=== PATIENT | female | born 1990 | race Caucasian/White ===

== ENCOUNTER 2016-12-10 00:56 | Emergency (ER) | payer MEDICAID, OTHER ==
[2016-12-10] MEDS ORDERED: NORMAL SALINE 1000 ML 1,000 ML IV ONE (01:20)
[2016-12-10 02:02] LABS: ABSOLUTE BASOPHILS # (AUTO) 0.1 10^3/uL (0.0-0.2); ABSOLUTE LYMPHOCYTES (AUTO) 1.4 10^3/uL (0.5-4.7); ABSOLUTE MONOCYTES (AUTO) 0.5 10^3/uL (0.1-1.4); BASOPHILS % (AUTO) 0.4 % (0-2); EOSINOPHILS % (AUTO) 0.2 % (0-6); HEMATOCRIT 39.2 % (36.0-47.0); HEMOGLOBIN 12.9 g/dL (12.0-15.5); HGB HCT DIFFERENCE -0.5; MEAN CORPUSCULAR HEMOGLOBIN 30.8 pg (27.0-33.4); MEAN CORPUSCULAR HGB CONC 32.9 g/dL (32.0-36.0); MEAN CORPUSCULAR VOLUME 94 fl (80-97); MONOCYTES % (AUTO) 3.3 % (3-13); RED BLOOD COUNT 4.18 10^6/uL (3.72-5.28); RED CELL DISTRIBUTION WIDTH 11.5 % (11.5-14.0); SEGMENTED NEUTROPHILS % (AUTO) 86.1 % (42-78); WHITE BLOOD COUNT 13.9 10^3/uL (4.0-10.5)
[2016-12-10 02:19] LABS: ALANINE AMINOTRANSFERASE 35 U/L (9-52); ALKALINE PHOSPHATASE 65 U/L (38-126); ANION GAP 13 (5-19); ASPARTATE AMINO TRANSFERASE 27 U/L (14-36); BILIRUBIN,TOTAL 0.7 mg/dL (0.2-1.3); BLOOD UREA NITROGEN 10 mg/dL (7-20); CALCIUM 9.6 mg/dL (8.4-10.2); CARBON DIOXIDE 23 mmol/L (22-30); CHLORIDE 102 mmol/L (98-107); CREATININE RESULT 0.58 mg/dL (0.52-1.25); GLUCOSE 102 mg/dL (75-110); LIPASE 30.5 U/L (23-300); POTASSIUM 3.9 mmol/L (3.6-5.0); SODIUM 137.6 mmol/L (137-145); TOTAL PROTEIN 6.9 g/dL (6.3-8.2)
[2016-12-10 03:59] LABS: APPEARANCE,URINE CLOUDY; BILIRUBIN,URINE NEGATIVE (NEGATIVE); GLUCOSE, URINE NEGATIVE (NEGATIVE); KETONES,URINE 80 mg/dL (NEGATIVE); LEUKOCYTE ESTERASE,URINE LARGE (NEGATIVE); NITRITE,URINE NEGATIVE (NEGATIVE); PROTEIN,URINE 30 mg/dL (NEGATIVE); URINE SPECIFIC GRAVITY 1.014; UROBILINOGEN,URINE NEGATIVE mg/dL (<2.0)
--- NOTE | 2016-12-10 04:32 | ER Document Report ---
ED General - General Chief Complaint: Nausea Stated Complaint: RIGHT SIDE RIB PAIN,VOMITING Notes: Patient is a 26-year-old female who presents with complaint of some nausea and vomiting, pain of her right upper ribs, and some abnormal vaginal discharge. She says she is proximal make 2 months . Her first visit is tomorrow at health Department. This is her fifth . She still sexually active and does not wear protection. She denies any complications with her other 4 pregnancies. No vaginal bleeding. No pain over the anterior abdomen. No other complaints at this time. No fevers. Patient says movement makes the pain in her ribs much worse. TRAVEL OUTSIDE OF THE [place] IN LAST 30 DAYS: No - Related Data Allergies/Adverse Reactions: No Known Allergies Allergy (Verified 04/18/16 05:04) Past Medical History - Social History Smoking Status: Current Every Day Smoker Frequency of alcohol use: None Drug Abuse: Marijuana Family History: None Patient has suicidal ideation: No Patient has homicidal ideation: No - Past Medical History Cardiac Medical History: Denies: Hx Hypertension Renal/ Medical History: Denies: Hx Peritoneal Dialysis Psychiatric Medical History: Reports: Hx Anxiety, Hx Bipolar Disorder, Hx Depression - Immunizations Hx Diphtheria, Pertussis, Tetanus Vaccination: Yes Review of Systems - Review of Systems Notes: My Normal Review Basic REVIEW OF SYSTEMS: CONSTITUTIONAL : Denies fever, chills, or sweats. Denies recent illness. EENT: Denies eye, ear, throat, or mouth pain or symptoms. Denies nasal or sinus congestion. CARDIOVASCULAR: Pain over right upper lateral ribs. RESPIRATORY: Denies cough, cold, or chest congestion. Denies shortness of breath, difficulty breathing, or wheezing. GASTROINTESTINAL: Denies abdominal pain. Some nausea and vomiting.. Denies constipation. Last BM: GENITOURINARY: Denies difficulty urinating, painful urination, burning, frequency, or blood in urine. FEMALE GENITOURINARY: Denies vaginal bleeding, abnormal or irregular periods. Some abnormal vaginal discharge LMP: Currently MUSCULOSKELETAL: Denies neck or back pain or joint pain or swelling. SKIN: Denies rash or skin lesions. NEUROLOGICAL: Denies altered mental status or loss of consciousness. Denies headache. Denies weakness or paralysis or loss of use of either side. Denies problems with gait or speech. Denies sensory or motor loss. ALL OTHER SYSTEMS REVIEWED AND NEGATIVE. Physical Exam - Vital signs Vitals: Temp Pulse BP Pulse Ox 97.5 F 76 140/100 H 98 12/10/16 01:18 12/10/16 01:18 12/10/16 01:18 12/10/16 01:18 - Notes Notes: General Appearance: Well nourished, alert, cooperative, no acute distress, mild obvious discomfort. Vitals: reviewed, See vital signs table. Head: no swelling or tenderness to the head Eyes: PERRL, EOMI, Conjuctiva clear Mouth: No decreasd moisture Neck: Supple, no neck tenderness, No thyromegaly Lungs: No wheezing, No rales, No rhonci, No accessory muscle use, good air exchange bilaterally. Heart: Normal rate, Regular rythm, No murmur, no rub Chest wall: Pinpoint pain palpation over the right upper ribs on the mid axillary line. No swelling. No deformity. Pain also worse with movement on exam. Abdomen: Normal BS, soft, No rigidity, No abdominal tenderness, No guarding, no rebound, no abdominal masses, no organomegaly Extremities: strength 5/5 in all extremities, good pulses in all extremities, no swelling or tenderness in the extremities, no edema. Skin: warm, dry, appropriate color, no rash Neuro: speech clear, oriented x 3, normal affect, responds appropriately to questions. Course - Vital Signs Vital signs: Temp Pulse Resp BP Pulse Ox 97.5 F 76 140/100 H 98 12/10/16 01:18 12/10/16 01:18 12/10/16 01:18 12/10/16 01:18 - Laboratory Result Diagrams: 12/10/16 01:49 12/10/16 01:49 Laboratory results interpreted by me: 12/10/16 12/10/16 12/10/16 01:49 01:49 03:32 WBC 13.9 H Seg Neutrophils % 86.1 H Lymphocytes % 10.0 L Absolute Neutrophils 12.0 H Beta HCG, Quant 106317.00 H Urine Protein 30 H Urine Ketones 80 H Urine Blood SMALL H Ur Leukocyte Esterase LARGE H - Transfer of Care Notes: 12/10/16 07:56 Patient was initially treated for possible guttering immediately because her pelvic exam had a large amount of yellowish discharge concerning for possible gonorrhea. Her gonorrhea and chlamydia testing was negative however she is positive for trichomonas. I did inform her she must have her sexual partner tested and treated as well. I did inform her of the subchronic hemorrhage. I encourage her to follow closely with her OB doctor and to bring her discharge paperwork with her to her upcoming appointment so that they can read about her results. I did type her results into the discharge paperwork. Informed her no sexual activity no heavy lifting until cleared by her OB doctor. I encourage her to return to ER medially if she has fevers, pain, or bleeding. Patient agrees with plan and will be discharged home. Dictation of this chart was performed using voice recognition software; therefore, there may be some unintended grammatical errors. Discharge - Discharge Clinical Impression: Bacterial vaginosis, Trichomonal cervicitis Twin Qualifiers: Multiple gestation type: unspecified Trimester: first trimester Qualified Code( s): O30.001 - Twin , unspecified number of placenta and unspecified number of amniotic sacs, first trimester UTI (urinary tract infection) Qualifiers: Urinary tract infection type: acute cystitis Hematuria presence: without hematuria Qualified Code(s): N30.00 - Acute cystitis without hematuria Subchorionic bleed Qualifiers: Trimester: first trimester Condition: Good Disposition: HOME, SELF-CARE Instructions: Cephalexin ([facility]) Additional Instructions: Your urinalysis should evidence of infection. Your vaginal swabs suggest bacterial vaginosis. Gonorrhea and chlamydia testing were negative. Your ultrasound does show a subchorionic hemorrhage. This is bleeding at sometimes occurs within the uterus during . This is a risk factor for miscarriage. It does not no ceiling mean that you will have a miscarriage. 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 Please take vitamins. Please follow up closely with her maintenance of way supervisor. Please take the antibiotics as prescribed. Please have your sexual partner follow-up with the health department or the ER for treatment and testing for sexually transmitted diseases being that your trichomonas test was positive. Prescriptions: Cephalexin Monohydrate [Keflex 500 mg Capsule] 500 mg PO BID #6 capsule Metronidazole [Flagyl 500 mg Tablet] 500 mg PO BID #14 tablet Pnv95/Ferrous Fumarate/FA [ Caplet] 1 each PO DAILY #60 tablet
[2016-12-10] MEDS ORDERED: LIDOCAINE 1% INJ-PF (10 MG/ML) 30 ML SDV INFIL ONE (05:38)
[2016-12-10] MEDS ORDERED: AZITHROMYCIN 250 MG TABLET PO ONE (05:38)
[2016-12-10] MEDS ORDERED: CEFTRIAXONE INJ 250 MG VIAL IM ONE (05:38)
[2016-12-10] MEDS ORDERED: ONDANSETRON 4 MG TAB.RAPDIS PO ONE (05:38)
[2016-12-10 06:52] LABS: CHLAM PCR NOT DETECTED (NOT DETECT)
[2016-12-10 08:51] VITALS: BP 123/65
== END 2016-12-10 08:56 | disposition home or self-care (01) ==
LOC: ER 00:56
DX: O20.8 Other hemorrhage in early pregnancy (principal); O98.311 Other infections with a predominantly sexual mode of transmission complicating pregnancy, first trimester; A59.09 Other urogenital trichomoniasis; O23.591 Infection of other part of genital tract in pregnancy, first trimester; N76.0 Acute vaginitis; B96.89 Other specified bacterial agents as the cause of diseases classified elsewhere; O23.11 Infections of bladder in pregnancy, first trimester; O30.001 Twin pregnancy, unspecified number of placenta and unspecified number of amniotic sacs, first trimester; O21.9 Vomiting of pregnancy, unspecified; O99.331 Smoking (tobacco) complicating pregnancy, first trimester; F17.200 Nicotine dependence, unspecified, uncomplicated; O26.891 Other specified pregnancy related conditions, first trimester; R07.81 Pleurodynia; Z3A.00 Weeks of gestation of pregnancy not specified
CPT/HCPCS: 99284; 96372; 96360; 86900; 86901; 36415; 87210; 84702; 83690; 85025; 80053; 81001; 87491; 87591; 71010; 76801; 76802; 93976; S0119; J3490; J7030; J0696

== ENCOUNTER 2017-06-01 05:26 | Inpatient (IN) | payer MEDICAID ==
[2017-06-01] MEDS ORDERED: CEFAZOLIN SODIUM 1 GM in DEXTROSE 5%-WATER 50 ML IV PRN (05:30)
[2017-06-01] MEDS ORDERED: CITRIC ACID/SODIUM CITRATE ORAL SOLN 15 ML UDCUP ONE (06:04)
[2017-06-01] MEDS ORDERED: CEFAZOLIN 2 GM/D5W RTU 2 GM/50 ML RTUPB IV ONE (06:04)
[2017-06-01] MEDS ORDERED: EPHEDRINE SULFATE INJ 50 MG/1 ML AMPULE ONE (06:07)
[2017-06-01] MEDS ORDERED: OXYTOCIN 10 UNIT/ML VIAL ONE (06:07)
[2017-06-01] MEDS ORDERED: MIDAZOLAM 2 MG/2 ML INJ ONE (06:07)
[2017-06-01] MEDS ORDERED: FENTANYL CITRATE INJ/PF 100 MCG/2 ML AMPUL ONE (06:07)
[2017-06-01] MEDS ORDERED: MORPHINE SULFATE 10 MG/ML INJ ONE ×2 (06:08→07:34)
[2017-06-01] MEDS ORDERED: ONDANSETRON HCL INJ/PF 4 MG/2 ML SDV ONE ×2 (06:08→07:12)
[2017-06-01] MEDS ORDERED: RINGERS SOLUTION,LACTATED 1,000 ML IV PRN (06:12)
[2017-06-01 06:18] LABS: ABSOLUTE BASOPHILS # (AUTO) 0.1 10^3/uL (0.0-0.2); ABSOLUTE EOSINOPHILS # (AUTO) 0.2 10^3/uL (0.0-0.6); ABSOLUTE LYMPHOCYTES (AUTO) 2.6 10^3/uL (0.5-4.7); ABSOLUTE NEUT (AUTO) 8.3 10^3/uL (1.7-8.2); BASOPHILS % (AUTO) 0.5 % (0-2); EOSINOPHILS % (AUTO) 1.7 % (0-6); HEMATOCRIT 29.3 % (36.0-47.0); HEMOGLOBIN 9.8 g/dL (12.0-15.5); HGB HCT DIFFERENCE 0.1; LYMPHOCYTES % (AUTO) 21.4 % (13-45); MEAN CORPUSCULAR HEMOGLOBIN 31.4 pg (27.0-33.4); MEAN CORPUSCULAR HGB CONC 33.3 g/dL (32.0-36.0); MEAN CORPUSCULAR VOLUME 94 fl (80-97); MONOCYTES % (AUTO) 8.3 % (3-13); RED BLOOD COUNT 3.11 10^6/uL (3.72-5.28); RED CELL DISTRIBUTION WIDTH 12.5 % (11.5-14.0); SEGMENTED NEUTROPHILS % (AUTO) 68.1 % (42-78); WHITE BLOOD COUNT 12.2 10^3/uL (4.0-10.5)
[2017-06-01 06:28] LABS: AMORPHOUS SEDIMENT,URINE TRACE /HPF; APPEARANCE,URINE CLEAR; BILIRUBIN,URINE NEGATIVE (NEGATIVE); GLUCOSE, URINE NEGATIVE (NEGATIVE); KETONES,URINE NEGATIVE (NEGATIVE); LEUKOCYTE ESTERASE,URINE NEGATIVE (NEGATIVE); NITRITE,URINE NEGATIVE (NEGATIVE); PROTEIN,URINE NEGATIVE (NEGATIVE); URINE SPECIFIC GRAVITY 1.003; UROBILINOGEN,URINE NEGATIVE mg/dL (<2.0)
[2017-06-01 06:28] LABS: ALANINE AMINOTRANSFERASE 28 U/L (9-52); ALBUMIN 3.3 g/dL (3.5-5.0); ALKALINE PHOSPHATASE 135 U/L (38-126); ANION GAP 9 (5-19); ASPARTATE AMINO TRANSFERASE 17 U/L (14-36); BILIRUBIN,DIRECT 0.3 mg/dL (0.0-0.4); BILIRUBIN,TOTAL 0.4 mg/dL (0.2-1.3); CALCIUM 8.7 mg/dL (8.4-10.2); CARBON DIOXIDE 19 mmol/L (22-30); CHLORIDE 108 mmol/L (98-107); CREATININE RESULT 0.54 mg/dL (0.52-1.25); GLUCOSE 79 mg/dL (75-110); POTASSIUM 3.6 mmol/L (3.6-5.0); SODIUM 136.2 mmol/L (137-145)
[2017-06-01] MEDS ORDERED: FENTANYL CITRATE INJ/PF 100 MCG/2 ML AMPUL IV PRN ×3 (06:52)
[2017-06-01] MEDS ORDERED: MEPERIDINE HCL/PF INJ 25 MG/1 ML DISP.SYRIN IV PRN (06:52)
[2017-06-01] MEDS ORDERED: OXYCODONE-ACETAMINOPHEN 5-325 MG TABLET PO PRN ×3 (06:52→07:49)
[2017-06-01] MEDS ORDERED: MORPHINE SULFATE 10 MG/ML INJ IV PRN (06:52)
[2017-06-01] MEDS ORDERED: PROMETHAZINE HCL INJ 25 MG/1 ML VIAL IV PRN ×3 (06:52→07:49)
[2017-06-01] MEDS ORDERED: DIPHENHYDRAMINE HCL 50 MG/ML VIAL IV PRN (06:52)
[2017-06-01 06:55] LABS: RUBELLA IGG ANTIBODY 5.07 IU/mL
[2017-06-01 07:08] LABS: ADD HIVPANEL? NO; HIV (1 AND 2) ANTIBODY NEGATIVE (NEGATIVE)
[2017-06-01 07:09] LABS: URINE METHADONE SCREEN NEGATIVE; URINE OPIATES LOW NEGATIVE; URINE PHENCYCLIDINE SCREEN NEGATIVE
[2017-06-01 07:10] LABS: BLOOD UREA NITROGEN < 2 mg/dL (7-20)
[2017-06-01 07:10] LABS: URINE BARBITURATES SCREEN NEGATIVE
[2017-06-01] MEDS ORDERED: OXYTOCIN/NORMAL SALINE 20 UNIT/1,000 ML RTUINJ ONE (07:12)
--- NOTE | 2017-06-01 07:40 | Delivery Summary ---
Del Sum A-C Datetime Report Generated by CPN: 06/01/2017 07:40 DELIVERY PERSONNEL DELIVERY PERSONNEL: ,[phone] Delivery Doctor:: Salbador Aguillon DO Anesthesiologist:: Kelsi Yoder MD CREDIT RISK ASSOCIATE:: Gerri Hoffman CRNA Labor and Delivery Nurse:: Amarilys Montemayor RNmachine sign writer Nurse:: Denise Matthews RN Marketing Operations Specialist:: Amarilys Montemayor RN Manager Meat:: Kei Guerrero MD Nurse Practitioner:: JAYDA Chu Nursery Nurse:: Alicia Matt RN Nursery Nurse:: Sienna Lund RN Boat Camp Operator/FLAVORINGS COMPOUNDER: ST Evelin Boat Camp Operator/FLAVORINGS COMPOUNDER: [facility] Ghassan Additional Personnel: : Denise Matthews RN MATERNAL INFORMATION Delivery Anesthesia: Spinal Medications After Delivery: Pitocin Bolus-Please Comment Meds After Delivery Comment: pitocin 30 units IVF/pitocin 20 units IVF Estimated Blood Loss (ml): 600 Maternal Complications: Premature Rupture of Membranes; Other Other Maternal Complications: no care--3 visits with health dept LABOR SUMMARY EDC: 07/22/2017 00:00 No. Babies in Womb: 2 Attempted: No Labor Anesthesia: None LABOR INFORMATION Reason for Induction: Not Applicable Onset of Labor: 06/01/2017 04:45 Oxytocin: N/A Group B Beta Strep: unknown Antibiotics # of Doses: 1 Name of Antibiotic Given: Ancef Steroids Given: None Reason Steroids Not Administered: Imminent Delivery MEMBRANES Membranes Rupture Method: Spontaneous Rupture of Membranes: 06/01/2017 04:45 Length of Rupture (hr): 1.83 Amniotic Fluid Color: Clear Amniotic Fluid Amount: Moderate Amniotic Fluid Odor: Normal STAGES OF LABOR Stage 3 hr: 0 Stage 3 min: 2 Total Time in Labor hr: 1 Total Time in Labor min: 52 VAGINAL DELIVERY Episiotomy: None Laceration Extension: N/A Laceration Type: None Laceration Repair: Not Applicable Sponge Count Correct: N/A Sharps Count Correct: N/A CSECTION DELIVERY Primary Indication: Multiple Gestation Secondary Indication: N/A CSection Urgency: Non-Scheduled CSection Incidence: Primary Labor: Labor Elective: Nonelective CSection Incision: Lower Uterine Transverse BABY A INFORMATION Delivery Date/Time: 06/01/2017 06:35 Method of Delivery: Born in Route : No : N/A Forceps: N/A Vacuum Extraction: N/A Shoulder Dystocia : No PRESENTATION/POSITION BABY A Presentation: Cephalic Cephalic Presentation: Vertex Breech Presentation: N/A PLACENTA INFORMATION BABY A Placenta Delivery Time : 06/01/2017 06:37 Placenta Method of Delivery: Manual Removal Placenta Status: Delivered SCORES BABY A Heart Rate 1 min: >100 bpm Resp Effort 1 min: Slow, Irregular Reflex Irritability 1 min: Cough or Sneeze or Pulls Away Muscle Tone 1 min: Some Flexion of Extremities Color 1 min: Body [place], Extremities Blue Resuscitation Effort 1 min: Tactile Stimulation SCORE 1 MIN: 7 Heart Rate 5 min: >100 bpm Resp Effort 5 min: Good Cry Reflex Irritability 5 min: Cough or Sneeze or Pulls Away Muscle Tone 5 min: Active Motion Color 5 min: Body [place], Extremities Blue Resuscitation Effort 5 min: N/A SCORE 5 MIN: 9 INFORMATION BABY A Gestational Age at Delivery: 32.5 Gestational Status: - <34 Weeks Infant Outcome : Liveborn Infant Condition : Stable Sex: Male IDENTIFICATION BABY A Infant Verification Date/Time: 06/01/2017 07:19 ID Band Number: [id number] Mother's Name Verified: Yes RN Verifying : A. Lavon RN Additional Verifying Personnel: Mesha Keradevin RN WEIGHT/LENGTH BABY A Infant Birthweight (gm): 1931 Weight (lb): 4 Weight (oz): 4 Length (in): 17.00 Infant Length (cm): 43.18 CORD INFORMATION BABY A No. Cord Vessels: 3 Nuchal Cord : N/A Cord Blood Taken: Yes-For Storage (Mom's Blood type +) Suction: Mouth; Nose ASSESSMENT BABY A Skin to Skin: No Manager Meat/ALS Called : Yes Infant Care By: NICU staff BABY B INFORMATION Infant Delivery Date/Time: 06/01/2017 06:36 Method of Delivery : Born in Route : No : N/A Forceps : N/A Vacuum Extraction: N/A Shoulder Dystocia : No SHOULDER DYSTOCIA BABY B Delivery Date/Time: 06/01/2017 06:36 PRESENTATION/POSITION BABY B Presentation : Breech Cephalic Position : N/A ROM/PLACENTA INFO BABY B Rupture of Membranes: 06/01/2017 04:45 Length of Rupture (hr): 1.85 Placenta Delivery Time : 06/01/2017 06:37 Placenta Method of Delivery: Manual Removal Placental Status : Delivered SCORES BABY B Heart Rate 1 min: >100 bpm Resp Effort 1 min: Good Cry Reflex Irritability 1 min: Cough or Sneeze or Pulls Away Muscle Tone 1 min: Active Motion Color 1 min: Body [place], Extremities Blue Resuscitation Effort 1 min: Tactile Stimulation SCORE 1 MIN: 9 Heart Rate 5 min: >100 bpm Resp Effort 5 min: Good Cry Reflex Irritability 5 min: Cough or Sneeze or Pulls Away Muscle Tone 5 min: Active Motion Color 5 min: Body [place], Extremities Blue Resuscitation Effort 5 min: N/A SCORE 5 MIN: 9 INFORMATION BABY B Gestational Age at Delivery: 32.5 Gestational Status : - <34 Weeks Outcome : Liveborn Condition : Stable Sex : Male IDENTIFICATION BABY B Verification Date/Time: 06/01/2017 07:20 ID Band Number : [id number] Mother's Name Verified: Yes Infant RN Verifying : AnthonyAdolfo Doll RN Additional Verifying Personnel: Mesha Mcintyre RN WEIGHT/LENGTH BABY B Infant Birthweight (gm): 1677 Weight (lb) : 3 Infant Weight (oz): 11 Infant Length (in): 16.50 Infant Length (cm): 41.91 CORD INFORMATION BABY B No. Cord Vessels : 3 Nuchal Cord : N/A Cord Blood Taken : Yes-For Storage (Mom's Blood Type +) Suction : Mouth; Nose ASSESSMENT BABY B Skin to Skin: No Manager Meat/ALS Called : Yes Care By : NICU staff
[2017-06-01] MEDS ORDERED: DIPH/PERTUSS(ACELL)/TETANUS VAC/PF 0.5 ML SYR (>=10YO) IM PRN (07:49)
[2017-06-01] MEDS ORDERED: OXYTOCIN/NORMAL SALINE 1,000 ML IV PRN (07:49)
[2017-06-01] MEDS ORDERED: ACETAMINOPHEN 100 ML IV PRN (07:49)
[2017-06-01] MEDS ORDERED: MEASLES,MUMPS&RUBELLA VACC/PF 0.5 ML VIAL SUBCUT PRN (07:49)
[2017-06-01] MEDS ORDERED: SIMETHICONE 80 MG TAB.CHEW PO PRN (07:49)
[2017-06-01] MEDS ORDERED: ACETAMINOPHEN 325 MG TABLET PO PRN (07:49)
--- NOTE | 2017-06-01 09:16 | Admission Physical ---
Datetime Report Generated by CPN: 06/01/2017 09:16 CURRENT ADMISSION Chief Complaint: Suspected Ruptured Membranes Indication for Induction: Not Applicable Admit Impression- Other: Twin Admit Plan: Admit to Unit; Initiate Section Protocol ALLERGIES Medication Allergies: No Medication Allergies: No Known Allergies (06/01/2017) Medication Allergies: No Known Allergies (04/18/2016) Latex: No Latex Allergies Food Allergies: N/A Environmental Allergies: N/A OBSTETRICAL HISTORY EDC: 07/22/2017 00:00 : 5 Para: 4 Ectopic: 0 Livin Cesareans: 0 VBACs: 0 Multiple Births: 0 Gestational Diabetes: No Rh Sensitization: No Incompetent Cervix: No OLIVIA: No Infertility: No ART Treatment: No Uterine Anomaly: No IUGR: No Hx Previous C/S: No Macrosomia: No Hx Loss/Stillborn: No PIH: No Hx : No Placenta Previa/Abruption: No Depression/PP Depression: Yes PTL/PROM: No Post Hemorrhage: Yes Current Procedures: Ultrasound; NST SEE RECORDS Alcohol: No Marijuana : Yes Cocaine: Yes Cocaine Comments: denied, positive on drug screen Other Illicit Drugs: No Cigarettes: Current Everyday Smoker. [id number] MEDICAL HISTORY Diabetes: No Blood Transfusion: No Pulmonary Disease (Asthma, TB): No Breast Disease: No Hypertension: No [place] Surgery: No Heart Disease: No Hosp/Surgery: Yes Autoimmune Disorder: No Anesthetic Complications: No Kidney Disease: No Abnormal Pap Smear: No Neuro/Epilepsy: No Psychiatric Disorders: No Other Medical Diseases: No Hepatitis/Liver Disease: No Significant Family History: No Varicosities/Phlebitis: No Trauma/Violence : No Thyroid Dysfunction: No Medical History Comments: hospitalized numerous times for bipolar episodes, suicide attempt in 2014, no current SI/HI INFECTIOUS HISTORY Gonorrhea: No Genital Herpes: No Chlamydia: Yes Tuberculosis: No Syphilis: No Hepatitis: No HIV/AIDS Exposure: No Rash or Viral Illness: No HPV: No Infectious History Comments: Chlamydia at 15 and one other time, can't remeber year Trichomonas PHYSICAL EXAM General: Normal HEENT: Normal Neurologic: Normal Thyroid: Deferred Heart: Normal Lungs: Normal Breast: Deferred Back: Normal Abdomen: Normal Genitourinary Exam: Normal Extremities: Normal DTRs: Normal Pelvic Type: Adequate Vital Signs: Reviewed; Within Normal Limits VAGINAL EXAM Dilatation: 4 Effacement: 60 Station: -1 MEMBRANES Membranes: Ruptured Amniotic Fluid Color: Clear FETUS A Monitoring: External US FHR- Baseline: 140 Variability: Moderate 6-25bpm Accelerations: 15X15 Decelerations: None FHR Category: Category I Admit Comment: Will take to OR for Primary C/S secondary to twin gestation, ROM and active labor FETUS B Monitoring: External US PLANS FOR LABOR AND DELIVERY Labor and Delivery: None Pain Management: Spinal Feeding Preference: Both Benefit of Breast Feed Discussed: Yes Circumcision: Yes INFORMED CONSENT Signature: with User ID: [email or web address]
[2017-06-01] MEDS: PRENATAL VITAMIN W-O CA NO5/FE FUMARATE/FA CAPSULE PO SCH (09:57)
[2017-06-01] MEDS: HYDROMORPHONE HCL INJ/PF 2 MG/ML AMPULE IV PRN ×2 (09:57→18:11)
[2017-06-01] MEDS: DOCUSATE SODIUM 100 MG CAPSULE PO SCH ×2 (09:58→18:11)
[2017-06-01] MEDS: OXYCODONE-ACETAMINOPHEN 5-325 MG TABLET PO PRN ×2 (12:00→22:37)
[2017-06-01] MEDS: KETOROLAC TROMETHAMINE INJ/PF 30 MG/1 ML SDV IV SCH ×2 (14:02→21:23)
[2017-06-01] MEDS ORDERED: ONDANSETRON 4 MG TAB.RAPDIS PO PRN (18:48)
[2017-06-02] MEDS: OXYCODONE-ACETAMINOPHEN 5-325 MG TABLET PO PRN ×5 (03:40→23:38)
[2017-06-02] MEDS: KETOROLAC TROMETHAMINE INJ/PF 30 MG/1 ML SDV IV SCH (05:14)
[2017-06-02 06:42] LABS: HEMATOCRIT 26.1 % (36.0-47.0); HEMOGLOBIN 8.7 g/dL (12.0-15.5); MEAN CORPUSCULAR HEMOGLOBIN 31.4 pg (27.0-33.4); MEAN CORPUSCULAR HGB CONC 33.3 g/dL (32.0-36.0); MEAN CORPUSCULAR VOLUME 94 fl (80-97); RED BLOOD COUNT 2.77 10^6/uL (3.72-5.28); RED CELL DISTRIBUTION WIDTH 12.4 % (11.5-14.0); WHITE BLOOD COUNT 12.5 10^3/uL (4.0-10.5)
[2017-06-02 07:42] LABS: HEPATITIS C VIRUS AB <0.1 s/co ratio (0.0-0.9)
[2017-06-02] MEDS: DOCUSATE SODIUM 100 MG CAPSULE PO SCH ×2 (09:49→17:19)
[2017-06-02] MEDS: PRENATAL VITAMIN W-O CA NO5/FE FUMARATE/FA CAPSULE PO SCH (09:49)
[2017-06-02] MEDS: IBUPROFEN 800 MG TABLET PO SCH ×3 (11:54→23:38)
[2017-06-03] MEDS: IBUPROFEN 800 MG TABLET PO SCH ×3 (05:35→17:11)
[2017-06-03] MEDS: OXYCODONE-ACETAMINOPHEN 5-325 MG TABLET PO PRN ×3 (08:19→17:14)
--- NOTE | 2017-06-03 09:42 | PDOC PROGRESS REPORT ---
Subjective-OB Subjective: Post Delivery Day: 27 year old. Denies any needs at this time Laying in bed with a man, babies not going home, pumping breasts, pain under control, scant bleeding, asking questions about self care and care of babies Physical Exam (OB) Vital Signs: Temp Pulse Resp BP Pulse Ox 98.2 F 65 16 104/59 L 98 06/03/17 08:30 06/03/17 08:30 06/03/17 08:30 06/03/17 08:30 06/03/17 08:30 Intake & Output 06/02/17 06/03/17 06/04/17 06:59 06:59 06:59 Intake Total 2878 Output Total 2575 Balance 303 Weight 81.647 kg - Dressing Removed: No - op site Incision: Dressing - Lochia Lochia Amount: Scant < 10 ml Lochia Color: Rubra/Red - Abdomen Description: Soft Hernia Present: No Fundal Description: Firm, Midline Fundal Height: u/3 - u/4 Objective-Diagnostic Laboratory: 06/02/17 06:13 06/01/17 05:56 Assessment and Plan(PN) - Assessment and Plan (1) No care in current Qualifiers: Trimester: third trimester Qualified Code(s): O09.33 - Supervision of with insufficient care, third trimester Is this a current diagnosis for this admission?: Yes (2) Twin gestation in third trimester Qualifiers: Multiple gestation type: unspecified Qualified Code(s): O30.003 - Twin , unspecified number of placenta and unspecified number of amniotic sacs, third trimester Is this a current diagnosis for this admission?: Yes (3) Twin delivery by Is this a current diagnosis for this admission?: Yes (4) Anemia Qualifiers: Anemia type: iron deficiency Is this a current diagnosis for this admission?: Yes (5) Marijuana abuse Is this a current diagnosis for this admission?: Yes (6) Cocaine abuse Is this a current diagnosis for this admission?: Yes - Time Spent with Patient Time with patient: Less than 15 minutes Smoking Education Provided: Over 3 minutes Medications reviewed and adjusted accordingly: Yes - Disposition Anticipated Discharge: Home - home today, discussed pain management, home care, RTC 1 week
--- NOTE | 2017-06-03 09:49 | PDOC DISCHARGE SUMMARY ---
Final Diagnosis Discharge Date: 06/03/17 - Final Diagnosis (1) No care in current Is this a current diagnosis for this admission?: Yes (2) Twin gestation in third trimester Is this a current diagnosis for this admission?: Yes (3) Twin delivery by Is this a current diagnosis for this admission?: Yes (4) Anemia Is this a current diagnosis for this admission?: Yes (5) Marijuana abuse Is this a current diagnosis for this admission?: Yes (6) Cocaine abuse Is this a current diagnosis for this admission?: Yes Discharge Data - Discharge Medication Home Medications: Ibuprofen [Motrin 800 mg Tablet] 800 mg PO Q6 #30 tablet 06/03/17 Oxycodone HCl/Acetaminophen [Percocet 5-325 mg Tablet] 1 tab PO Q4HP PRN #20 tablet 06/03/17 Gestational Age: 32.5 Reason(s) for Admission: PROM Admission Note: Twins, no care Procedures: None Intrapartum Procedure(s): : Low Cervical, Transverse - [place] Data Baby 1 Male at 1 minute: 7 at 5 minutes: 9 Weight: 1.928 kg Home with Mother: No Complications: Yes - Baby 2 at 1 minute: 9 at 5 minutes: 9 Weight: 1.673 kg Home with Mother: No Complications: No - - Diagnosis Test Laboratory: Temp Pulse Resp BP Pulse Ox 98.2 F 65 16 104/59 L 98 06/03/17 08:30 06/03/17 08:30 06/03/17 08:30 06/03/17 08:30 06/03/17 08:30 06/01/17 06/01/17 06/02/17 05:50 05:56 06:13 RBC 3.11 L 2.77 L Hgb 9.8 L 8.7 L Hct 29.3 L 26.1 L Urine Opiates Screen NEGATIVE - Discharge information/Instructions Discharge Activity: Activity As Tolerated, No Lifting Over 10 Pounds, No Lifting /Push/Pulling, Pelvic Rest Discharge Diet: As Tolerated Disposition: HOME, SELF-CARE Follow up with: [facility] in: 1, Weeks
[2017-06-03] MEDS: PRENATAL VITAMIN W-O CA NO5/FE FUMARATE/FA CAPSULE PO SCH (10:26)
[2017-06-03] MEDS: DOCUSATE SODIUM 100 MG CAPSULE PO SCH ×2 (10:26→17:11)
[2017-06-03 11:37] VITALS: BP 116/82
--- NOTE | 2017-07-21 18:28 | OPERATIVE REPORT E ---
Operative Report NAME: TALHA ABEBE : 1990 AGE: 27Y DATE OF SURGERY: 06/01/2017 ROOM: 215 PREOPERATIVE DIAGNOSES: 1. A 32-week intrauterine . 2. Twin gestation. 3. Premature rupture of membranes. 4. Active labor. 5. Twins in malposition with baby A in vertex position and baby B in breech presentation. POSTOPERATIVE DIAGNOSES: 1. A 32-week intrauterine . 2. Twin gestation. 3. Premature rupture of membranes. 4. Active labor. 5. Twins in malposition with baby A in vertex position and baby B in breech presentation. OPERATION: Primary low transverse section. SURGEON: Salbador Aguillon D.O. TUFT MACHINE OPERATOR: None. ESTIMATED BLOOD LOSS: 600 mL. ANESTHESIA: Spinal. COMPLICATIONS: None. PATHOLOGY: Placenta. FINDINGS: 1. Baby A is a viable male at 6:35 a.m. on 06/01/2017, 's 8 at one, 9 at five. Baby B is a viable male at 6:36 a.m. on 06/01/2017, 's 8 at one, 9 at five. 2. Nuchal cord x1 on each baby. 3. Normal-appearing bilateral fallopian tubes and ovaries. 4. Baby A in vertex position and baby B in breech presentation. PROCEDURE: The patient was taken to the operating room where spinal anesthesia was administered. Once this was done, she was placed in the dorsal supine position with a leftward tilt upon the operating room table. She was then prepped and draped in the normal sterile fashion. A scalpel was then used to make a Pfannenstiel skin incision. The skin incision was carried down through the subcutaneous tissue to the layer of the fascia. The fascia was then incised in the midline and the fascial incision was then extended bilaterally using the Bovie cautery. The superior fascial edge was grasped with Girish clamps, elevated, and the rectus muscles were dissected off sharply and bluntly. Attention was then turned to the inferior fascial edge, which was grasped with Girish clamps, elevated, and the rectus muscles dissected off sharply and bluntly. Rectus muscles were then in the midline, peritoneum identified and entered bluntly with the surgeon's hands. A bladder blade was inserted. A scalpel was then used to make a low transverse hysterotomy incision. Infant A was delivered through this incision in the cephalic position without difficulty and atraumatically. The cord was clamped and cut. The infant's nose and mouth were suctioned. The infant was handed off to the awaiting mechanical fitter. Infant B was delivered in the breech presentation without difficulty and atraumatically. The nose and mouth were suctioned. The cord was clamped and cut. The infant was handed off to the awaiting mechanical fitter again. Cord bloods were then obtained. The placenta was then manually removed from the uterus. The uterus was then exteriorized and cleared of all clots and debris. The hysterotomy incision was then reapproximated using 2 layers of 1-0 Vicryl in a running, locking fashion. Following closure of the second layer, excellent hemostasis was noted. The uterus was then returned to the abdomen. Again, the hysterotomy incision was reinspected and found to have excellent hemostasis. The rectus muscles were then reapproximated using 1-0 Vicryl interrupted sutures. The fascia was then closed using 1-0 Vicryl in a running, nonlocking fashion. The subcutaneous space was made hemostatic using Bovie cautery. The skin was then closed with absorbable ramsey, covered with an OpSite and then with a pressure dressing. At this point in time, the procedure was terminated. All sponge, lap, and needle counts were correct x2. The patient tolerated the procedure well. The patient was taken to recovery room in stable condition. DICTATING PHYSICIAN: Salbador Aguillon DO [id number] PHY#: [id number] ID: [id number] JOB#: [id number] ACCT: [id number] cc:Salbador Aguillon D.O. >
== END 2017-06-03 19:44 | disposition home or self-care (01) | DRG 775 ==
LOC: LC 05:26 → LR 05:45 → 2S 09:10
PROVIDERS: ADMIT Obstetrics & Gynecology; ATTEND Obstetrics & Gynecology
PROC: 4A1HXCZ Monitoring of Products of Conception, Cardiac Rate, External Approach (ICD-10-PCS; principal; 2017-06-01)
PROC: 3E0234Z Introduction of Serum, Toxoid and Vaccine into Muscle, Percutaneous Approach (ICD-10-PCS; 2017-06-03)
DX: O32.1XX0 Maternal care for breech presentation, not applicable or unspecified (principal); O60.14X0 Preterm labor third trimester with preterm delivery third trimester, not applicable or unspecified; O42.013 Preterm premature rupture of membranes, onset of labor within 24 hours of rupture, third trimester; O30.043 Twin pregnancy, dichorionic/diamniotic, third trimester; O99.02 Anemia complicating childbirth; D64.9 Anemia, unspecified; O99.344 Other mental disorders complicating childbirth; F12.10 Cannabis abuse, uncomplicated; F14.10 Cocaine abuse, uncomplicated; O69.81X0 Labor and delivery complicated by cord around neck, without compression, not applicable or unspecified; O99.334 Smoking (tobacco) complicating childbirth; F17.210 Nicotine dependence, cigarettes, uncomplicated; F31.9 Bipolar disorder, unspecified; Z23 Encounter for immunization; Z3A.32 32 weeks gestation of pregnancy; Z37.2 Twins, both liveborn
CPT/HCPCS: 1961; 36415; 59025; 80053; 80307; 80353; 81001; 85025; 85027; 86592; 86701; 86762; 86803; 86804; 86850; 86900; 86901; 87340; 88307; 90707; 94799; G0480; J0690; J1170; J1885; J2250; J2270; J2405; J2590; J3010; J3490

== ENCOUNTER 2017-06-08 20:40 | Emergency (ER) | payer MEDICAID ==
--- NOTE | 2017-06-08 22:47 | ER Document Report ---
ED Wound - General Chief Complaint: Incision Drainage Stated Complaint: POSSIBLE INFECTION Time Seen by Provider: 06/08/17 22:42 Notes: The patient is a 27-year-old female who presents with drainage from site of her wound that occurred 7 days ago. She noticed yellow drainage that starting today. She is also having mild pain at that site. She denies fevers, nausea, vomiting, abdominal pain or urinary symptoms. TRAVEL OUTSIDE OF THE [place] IN LAST 30 DAYS: No - Related Data Allergies/Adverse Reactions: No Known Allergies Allergy (Verified 06/01/17 07:47) Past Medical History - General Information source: Patient - Social History Smoking Status: Never Smoker Family History: None - Past Medical History Cardiac Medical History: Denies: Hx Hypertension Renal/ Medical History: Denies: Hx Peritoneal Dialysis Psychiatric Medical History: Reports: Hx Anxiety, Hx Bipolar Disorder, Hx Depression - Immunizations Hx Diphtheria, Pertussis, Tetanus Vaccination: Yes Review of Systems - Review of Systems Notes: REVIEW OF SYSTEMS: CONSTITUTIONAL: -fevers, -chills EENT: -eye pain, -difficulty swallowing, -nasal congestion CARDIOVASCULAR:-chest pain, -syncope. RESPIRATORY: -cough, -SOB GASTROINTESTINAL: -abdominal pain, - nausea, -vomiting, -diarrhea GENITOURINARY: -dysuria, -hematuria MUSCULOSKELETAL: -back pain, -neck pain SKIN: +drainage from wound HEMATOLOGIC: -easy bruising or bleeding. LYMPHATIC: -swollen, enlarged glands. NEUROLOGICAL: -altered mental status or loss of consciousness, -headache, - neurologic symptoms PSYCHIATRIC: -anxiety, -depression. ALL OTHER SYSTEMS REVIEWED AND NEGATIVE. Physical Exam - Notes Notes: PHYSICAL EXAMINATION: GENERAL: Well-appearing, well-nourished and in no acute distress. HEAD: Atraumatic, normocephalic. EYES: Pupils equal round and reactive to light, extraocular movements intact, sclera anicteric, conjunctiva are normal. ENT: nares patent, oropharynx clear without exudates. Moist mucous membranes. NECK: Normal range of motion, supple without lymphadenopathy LUNGS: Breath sounds clear to auscultation bilaterally and equal. No wheezes rales or rhonchi. HEART: Regular rate and rhythm without murmurs ABDOMEN: Soft, nontender, normoactive bowel sounds. No guarding, no rebound. No masses appreciated. EXTREMITIES: Normal range of motion, no pitting or edema. No cyanosis. NEUROLOGICAL: Cranial nerves grossly intact. Normal speech, normal gait. Normal sensory and motor exams. PSYCH: Normal mood, normal affect. SKIN: Well-healing suprapubic horizontal surgical incision without erythema, drainage or fluctuance Course - Re-evaluation Re-evalutation: Patient's surgical wound appears very well. No drainage or other signs of infection and no fevers. Patient asking for an ibuprofen and [place] because she left her scripts at home and her babies are in the NICU. Will provide her with one dose and instructed her to follow-up with her OB. Discharge - Discharge Clinical Impression: Encounter for postoperative wound check Condition: Stable Disposition: HOME, SELF-CARE Additional Instructions: Your wound does not appear infected at this time. You may apply Bacitracin to the wound. Continue your ibuprofen and follow-up with your OB.
[2017-06-08] MEDS ORDERED: IBUPROFEN 600 MG TABLET PO ONE (22:52)
[2017-06-08] MEDS ORDERED: HYDROCODONE/ACETAMINOPHEN 5-325 MG TABLET PO ONE (22:52)
[2017-06-08 23:01] VITALS: BP 131/76
== END 2017-06-08 23:00 | disposition home or self-care (01) ==
LOC: ER 20:40
DX: Z48.816 Encounter for surgical aftercare following surgery on the genitourinary system (principal)
CPT/HCPCS: 99283; J3490

== ENCOUNTER 2017-07-14 09:57 | Emergency (ER) | payer OTHER, MEDICAID ==
[2017-07-14 10:35] LABS: ABSOLUTE EOSINOPHILS # (AUTO) 0.2 10^3/uL (0.0-0.6); ABSOLUTE LYMPHOCYTES (AUTO) 1.9 10^3/uL (0.5-4.7); ABSOLUTE MONOCYTES (AUTO) 0.6 10^3/uL (0.1-1.4); ABSOLUTE NEUT (AUTO) 5.9 10^3/uL (1.7-8.2); BASOPHILS % (AUTO) 0.5 % (0-2); EOSINOPHILS % (AUTO) 2.1 % (0-6); HEMATOCRIT 33.6 % (36.0-47.0); HEMOGLOBIN 11.5 g/dL (12.0-15.5); HGB HCT DIFFERENCE 0.9; LYMPHOCYTES % (AUTO) 22.2 % (13-45); MEAN CORPUSCULAR HEMOGLOBIN 31.8 pg (27.0-33.4); MEAN CORPUSCULAR HGB CONC 34.2 g/dL (32.0-36.0); MEAN CORPUSCULAR VOLUME 93 fl (80-97); MONOCYTES % (AUTO) 7.4 % (3-13); RED BLOOD COUNT 3.61 10^6/uL (3.72-5.28); RED CELL DISTRIBUTION WIDTH 13.1 % (11.5-14.0); SEGMENTED NEUTROPHILS % (AUTO) 67.8 % (42-78); WHITE BLOOD COUNT 8.7 10^3/uL (4.0-10.5)
--- NOTE | 2017-07-14 11:10 | ER Document Report ---
ED GI/ - General Chief Complaint: Vaginal Bleeding Stated Complaint: VAGINAL BLEEDING Time Seen by Provider: 07/14/17 10:08 Mode of Arrival: Ambulatory Information source: Patient Notes: Pt is a 27 year old female who presents to the ER today with skilled nursing security as she is incarcerated for vaginal bleeding that started yesterday. Pt is 6 weeks and states that her bleeding has been "off and on" since her c section for her delivery of twins at that time. She denies abdominal pain or incision pain, drainage, bleeding, redness, fever/chills. TRAVEL OUTSIDE OF THE [place] IN LAST 30 DAYS: No - Related Data Allergies/Adverse Reactions: No Known Allergies Allergy (Verified 06/01/17 07:47) Past Medical History - General Information source: Patient - Social History Smoking Status: Current Every Day Smoker Chew tobacco use (# tins/day): - 30 Frequency of alcohol use: None Drug Abuse: None Family History: None - Past Medical History Cardiac Medical History: Denies: Hx Hypertension Renal/ Medical History: Denies: Hx Peritoneal Dialysis Psychiatric Medical History: Reports: Hx Anxiety, Hx Bipolar Disorder, Hx Depression Past Surgical History: Reports: Hx Section - Immunizations Hx Diphtheria, Pertussis, Tetanus Vaccination: Yes Review of Systems - Review of Systems Constitutional: No symptoms reported EENT: No symptoms reported Cardiovascular: No symptoms reported Respiratory: No symptoms reported Gastrointestinal: No symptoms reported Genitourinary: No symptoms reported Female Genitourinary: See HPI Musculoskeletal: No symptoms reported Skin: No symptoms reported Hematologic/Lymphatic: No symptoms reported Neurological/Psychological: No symptoms reported Physical Exam - Vital signs Vitals: Temp Pulse Resp BP Pulse Ox 97.7 F 75 20 150/102 H 98 07/14/17 10:05 07/14/17 10:05 07/14/17 10:05 07/14/17 10:05 07/14/17 10:05 - Notes Notes: PHYSICAL EXAMINATION: GENERAL: Well-appearing and in no acute distress. HEAD: Atraumatic, normocephalic. EYES: Pupils equal round and reactive to light, extraocular movements intact, sclera anicteric, conjunctiva are normal. NECK: Normal range of motion, supple without lymphadenopathy LUNGS: CTAB and equal. No wheezes rales or rhonchi. HEART: Regular rate and rhythm without murmurs ABDOMEN: c section incision well healed, no erythema or drainage, no tenderness , Soft, no tenderness. No guarding, no rebound BACK: no vertebral tenderness, normal ROM GI/: no CVA tenderness EXTREMITIES: Normal range of motion, no pitting edema. No cyanosis. NEUROLOGICAL: Cranial nerves grossly intact. Normal sensory/motor exams. PSYCH: Normal mood, normal affect. SKIN: Warm, Dry, normal turgor, no rashes or lesions noted Course - Re-evaluation Re-evalutation: 07/14/17 11:32 Pt's hgb today is 11.5, I believe this is just bleeding that is normal. incision looked great today, no abdominal tenderness. Pt to be discharged back to skilled nursing. On discharge pt came up with multiple more complaints that she hadn't told me during this entire visit, I'd been in the room 3 times so far and not heard any other complaints. It is my belief that pt just does not want to go back to skilled nursing. - Vital Signs Vital signs: Temp Pulse Resp BP Pulse Ox 97.9 F 84 20 123/80 100 07/14/17 11:27 07/14/17 11:27 07/14/17 11:27 07/14/17 11:27 07/14/17 11:27 - Laboratory Result Diagrams: 07/14/17 10:20 Laboratory results interpreted by me: 07/14/17 10:20 RBC 3.61 L Hgb 11.5 L Hct 33.6 L Discharge - Discharge Clinical Impression: Vaginal bleeding Condition: Stable Disposition: HOME, SELF-CARE Additional Instructions: Return immediately for any new or worsening symptoms. Follow up with primary care provider, call tomorrow to make followup appointment.
[2017-07-14 11:35] VITALS: BP 123/80
== END 2017-07-14 11:28 | disposition home or self-care (01) ==
LOC: ER 09:57
DX: O72.2 Delayed and secondary postpartum hemorrhage (principal); O99.335 Smoking (tobacco) complicating the puerperium; Z98.890 Other specified postprocedural states
CPT/HCPCS: 36415; 85025; 99284

== ENCOUNTER 2017-08-09 02:37 | Emergency (ER) | payer MEDICAID ==
[2017-08-09] MEDS ORDERED: AMOXICILLIN TRIHYDRATE 500 MG CAPSULE PO ONE (02:56)
[2017-08-09] MEDS ORDERED: DEXAMETHASONE SOD PHOS INJ 10 MG/1 ML VIAL IM ONE (02:56)
--- NOTE | 2017-08-09 02:59 | ER Document Report ---
HPI - HPI Patient complains to provider of: left ear pain Context: Patient is a 27-year-old female comes emergency department for chief complaint of left ear pain for several days. She states it is getting significantly worse. She states she thinks a bug might have crawled in it but she really is not sure. She denies discharge from the ear. She does report some congestion. She denies fever, dizziness, vomiting. She denies injury. - CARDIOVASCULAR Cardiovascular: DENIES: Chest pain - REPRODUCTIVE Reproductive: REPORTS: : Past Medical History - General Information source: Patient - Social History Smoking Status: Current Some Day Smoker Frequency of alcohol use: Occasional Lives with: Alone Family History: None - Past Medical History Cardiac Medical History: Denies: Hx Hypertension Renal/ Medical History: Denies: Hx Peritoneal Dialysis Psychiatric Medical History: Reports: Hx Anxiety, Hx Bipolar Disorder, Hx Depression Past Surgical History: Reports: Hx Section - Immunizations Hx Diphtheria, Pertussis, Tetanus Vaccination: Yes Vertical Provider Document - CONSTITUTIONAL General Appearance: WD/WN, No Apparent Distress - INFECTION CONTROL TRAVEL OUTSIDE OF THE [place] IN LAST 30 DAYS: No - HEENT HEENT: Atraumatic, Normocephalic. negative: Normal ENT Exam - Left superlative otitis media noted, canal is unremarkable, some adenopathy noted in the posterior cervical chain, mastoid is normal, normal ENT exam otherwise other than mild nasal congestion, Pharyngeal Exudate, Pharyngeal Tenderness - RESPIRATORY Respiratory: Breath Sounds Normal, No Respiratory Distress - CARDIOVASCULAR Cardiovascular: Regular Rate, Regular Rhythm - GI/ABDOMEN Gastrointestinal: Abdomen Soft, Abdomen Non-Tender - BACK Back: Normal Inspection - MUSCULOSKELETAL/EXTREMETIES Musculoskeletal/Extremeties: MAEW, FROM, Non-Tender - NEURO Level of Consciousness: Awake, Alert, Appropriate - DERM Integumentary: Warm, Dry, No Rash Discharge - Discharge Clinical Impression: Left ear pain Otitis media Qualifiers: Otitis media type: suppurative Chronicity: acute Laterality: left Recurrence: not specified as recurrent Spontaneous tympanic membrane rupture: without spontaneous rupture Qualified Code(s): H66.002 - Acute suppurative otitis media without spontaneous rupture of ear drum, left ear Condition: Stable Disposition: HOME, SELF-CARE Additional Instructions: You have an infection of the left middle ear. There is no foreign body or abnormality of the ear canal. Take the amoxicillin as prescribed, take ibuprofen or similar medication for pain. Follow-up with primary care. Return to the emergency department for any concerning worsening symptoms including spiking fever, swelling behind the right ear, vomiting, dizziness, etc. Prescriptions: Amoxicillin Trihydrate [Amoxil 875 mg Tablet] 1 tab PO BID #20 tablet
== END 2017-08-09 03:28 | disposition home or self-care (01) ==
LOC: ER 02:37
DX: H66.002 Acute suppurative otitis media without spontaneous rupture of ear drum, left ear (principal); H92.02 Otalgia, left ear; F17.200 Nicotine dependence, unspecified, uncomplicated
CPT/HCPCS: 99282; J1100

== ENCOUNTER 2017-08-10 09:01 | Emergency (ER) | payer MEDICAID ==
[2017-08-10] MEDS ORDERED: CIPROFLOXACIN HCL/DEXAMETH OTIC DROP 7.5 ML AS ONE (09:52)
[2017-08-10] MEDS ORDERED: NAPROXEN 250 MG TABLET PO ONE (09:52)
[2017-08-10] MEDS ORDERED: AMOXICILLIN TRIHYDRATE 500 MG CAPSULE PO ONE (09:52)
--- NOTE | 2017-08-10 09:58 | ER Document Report ---
HPI - HPI Patient complains to provider of: Ear pain Onset: Other Onset/Duration: Persistent - 3 days Quality of pain: Achy Pain Level: 2 Context: Patient presents complaining of left ear pain. Patient states she was recently here and diagnosed with an ear infection. Patient received a prescription for amoxicillin but states that she was partying last night like a rockstar last night, using cocaine, and has since lost her prescription. Patient states that she plans to go get treatment for her substance abuse and has a [facility] presented if in the room with her at this time. Patient denies any suicidal or homicidal ideation. Patient states she is simply here to get additional prescription for her antibiotic to treat her ear pain. Patient also states that she has a dental infection and swelling about the gums involving her decayed tooth. Patient reports fever at home. Associated Symptoms: Earache, Fever, Other - dental pain. denies: Headache Exacerbated by: Denies Relieved by: Denies Similar symptoms previously: Yes Recently seen / treated by doctor: Yes - ROS ROS below otherwise negative: Yes Systems Reviewed and Negative: Yes All other systems reviewed and negative - CONSTITUTIONAL Constitutional: REPORTS: Fever - EENT EENT: REPORTS: Ear Pain. DENIES: Sore Throat Notes: dental pain - RESPIRATORY Respiratory: DENIES: Coughing - GASTROINTESTINAL Gastrointestinal: DENIES: Nausea, Patient vomiting - MUSCULOSKELETAL Musculoskeletal: DENIES: Back Pain, Neck Pain - DERM Skin Color: Normal Skin Problems: None Past Medical History - General Information source: Patient - Social History Smoking Status: Current Every Day Smoker Frequency of alcohol use: Occasional Drug Abuse: Cocaine Family History: None - Past Medical History Cardiac Medical History: Denies: Hx Hypertension Renal/ Medical History: Denies: Hx Peritoneal Dialysis Psychiatric Medical History: Reports: Hx Anxiety, Hx Bipolar Disorder, Hx Depression Past Surgical History: Reports: Hx Section - Immunizations Hx Diphtheria, Pertussis, Tetanus Vaccination: Yes Vertical Provider Document - CONSTITUTIONAL Agree With Documented VS: Yes Exam Limitations: No Limitations General Appearance: WD/WN, No Apparent Distress - INFECTION CONTROL TRAVEL OUTSIDE OF THE [place] IN LAST 30 DAYS: No - HEENT HEENT: Atraumatic, Normocephalic - NECK Neck: Normal Inspection, Supple - RESPIRATORY Respiratory: Breath Sounds Normal, No Respiratory Distress O2 Sat by Pulse Oximetry: 100 - CARDIOVASCULAR Cardiovascular: Regular Rate, Regular Rhythm, No Murmur - MUSCULOSKELETAL/EXTREMETIES Musculoskeletal/Extremeties: MAEW - NEURO Level of Consciousness: Awake, Alert Motor/Sensory: No Motor Deficit - DERM Integumentary: Warm, Dry, No Rash Course - Re-evaluation Re-evalutation: 08/10/17 10:[address] Kerr stating Per [facility] protocol patient was just here yesterday, agrees with discharge plan of care - Vital Signs Vital signs: Temp Pulse Resp BP Pulse Ox 97.6 F 70 18 139/104 H 100 08/10/17 09:09 08/10/17 09:09 08/10/17 09:09 08/10/17 09:09 08/10/17 09:09 Discharge - Discharge Clinical Impression: Left ear pain, Infected dental caries Otitis externa Qualifiers: Otitis externa type: unspecified type Chronicity: acute Laterality: left Qualified Code(s): H60.502 - Unspecified acute noninfective otitis externa, left ear Condition: Stable Disposition: HOME, SELF-CARE Instructions: Acetaminophen, Amoxicillin ([facility]), Use of Ear Drops ([facility]), Otitis Externa ([facility]), Toothache ([facility]) Additional Instructions: Return immediately for any new or worsening symptoms Followup with your primary care provider, call tomorrow to make a followup appointment Instill the Ciprodex 4 drops twice a day into your left ear. Prescriptions: Amoxicillin 500 mg PO TID #30 tablet Referrals: [facility] [Provider Group] - Follow up as needed [facility] [Provider Group] - 08/10/17
[2017-08-10 11:14] VITALS: BP 121/90
== END 2017-08-10 10:26 | disposition home or self-care (01) ==
LOC: ER 09:01
DX: H60.502 Unspecified acute noninfective otitis externa, left ear (principal); K02.9 Dental caries, unspecified; H92.02 Otalgia, left ear; R50.9 Fever, unspecified; K08.89 Other specified disorders of teeth and supporting structures; F17.200 Nicotine dependence, unspecified, uncomplicated
CPT/HCPCS: 99282; J3490 ×2

== ENCOUNTER 2017-08-13 16:31 | Emergency (ER) | payer MEDICAID ==
--- NOTE | 2017-08-13 17:16 | ER Document Report ---
ED Medical Screen (RME) - General Chief Complaint: Psych Problem Stated Complaint: PSYCH EVAL Time Seen by Provider: 08/13/17 17:15 Notes: Patient is referred by mobile crisis for manic episode. Patient has a history of crack cocaine use. TRAVEL OUTSIDE OF THE [place] IN LAST 30 DAYS: No - Related Data Allergies/Adverse Reactions: No Known Allergies Allergy (Verified 08/13/17 16:36) Past Medical History - Past Medical History Cardiac Medical History: Denies: Hx Hypertension Renal/ Medical History: Denies: Hx Peritoneal Dialysis Psychiatric Medical History: Reports: Hx Anxiety, Hx Bipolar Disorder, Hx Depression Past Surgical History: Reports: Hx Section - Immunizations Hx Diphtheria, Pertussis, Tetanus Vaccination: Yes Physical Exam - Vital signs Vitals: Temp Pulse Resp BP Pulse Ox 98.6 F 102 H 16 152/84 H 99 08/13/17 16:39 08/13/17 16:39 08/13/17 16:39 08/13/17 16:39 08/13/17 16:39 Course - Vital Signs Vital signs: Temp Pulse Resp BP Pulse Ox 98.6 F 102 H 16 152/84 H 99 08/13/17 16:39 08/13/17 16:39 08/13/17 16:39 08/13/17 16:39 08/13/17 16:39
[2017-08-13 17:24] LABS: ABSOLUTE EOSINOPHILS # (AUTO) 0.1 10^3/uL (0.0-0.6); ABSOLUTE LYMPHOCYTES (AUTO) 1.4 10^3/uL (0.5-4.7); ABSOLUTE MONOCYTES (AUTO) 0.6 10^3/uL (0.1-1.4); ABSOLUTE NEUT (AUTO) 10.2 10^3/uL (1.7-8.2); BASOPHILS % (AUTO) 0.3 % (0-2); EOSINOPHILS % (AUTO) 1.1 % (0-6); HEMATOCRIT 34.4 % (36.0-47.0); HEMOGLOBIN 11.3 g/dL (12.0-15.5); HGB HCT DIFFERENCE -0.5; LYMPHOCYTES % (AUTO) 11.4 % (13-45); MEAN CORPUSCULAR HEMOGLOBIN 30.7 pg (27.0-33.4); MEAN CORPUSCULAR HGB CONC 32.9 g/dL (32.0-36.0); MEAN CORPUSCULAR VOLUME 93 fl (80-97); MONOCYTES % (AUTO) 4.8 % (3-13); RED BLOOD COUNT 3.69 10^6/uL (3.72-5.28); RED CELL DISTRIBUTION WIDTH 14.3 % (11.5-14.0); SEGMENTED NEUTROPHILS % (AUTO) 82.4 % (42-78); WHITE BLOOD COUNT 12.3 10^3/uL (4.0-10.5)
[2017-08-13] MEDS ORDERED: OLANZAPINE INJ/PF 10 MG SDV IM ONE (17:37)
[2017-08-13 17:41] LABS: ALANINE AMINOTRANSFERASE 35 U/L (9-52); ALBUMIN 3.7 g/dL (3.5-5.0); ALKALINE PHOSPHATASE 79 U/L (38-126); ANION GAP 8 (5-19); ASPARTATE AMINO TRANSFERASE 34 U/L (14-36); BILIRUBIN,DIRECT 0.4 mg/dL (0.0-0.4); BILIRUBIN,TOTAL 0.5 mg/dL (0.2-1.3); BLOOD UREA NITROGEN 12 mg/dL (7-20); CALCIUM 8.8 mg/dL (8.4-10.2); CARBON DIOXIDE 25 mmol/L (22-30); CHLORIDE 104 mmol/L (98-107); GLUCOSE 89 mg/dL (75-110); POTASSIUM 4.2 mmol/L (3.6-5.0); TOTAL PROTEIN 6.1 g/dL (6.3-8.2)
[2017-08-13 17:43] LABS: ALCOHOL < 10 mg/dL (NONE DETECTED)
[2017-08-13] MEDS ORDERED: BENZTROPINE MESYLATE INJ 2 MG/2 ML AMPULE IM ONE (17:45)
[2017-08-13 18:03] LABS: APPEARANCE,URINE CLOUDY; BILIRUBIN,URINE NEGATIVE (NEGATIVE); GLUCOSE, URINE NEGATIVE (NEGATIVE); KETONES,URINE NEGATIVE (NEGATIVE); LEUKOCYTE ESTERASE,URINE TRACE (NEGATIVE); NITRITE,URINE NEGATIVE (NEGATIVE); PROTEIN,URINE NEGATIVE (NEGATIVE); URINE SPECIFIC GRAVITY 1.008; UROBILINOGEN,URINE NEGATIVE mg/dL (<2.0)
[2017-08-13 18:14] LABS: URINE BARBITURATES SCREEN NEGATIVE; URINE METHADONE SCREEN NEGATIVE; URINE OPIATES LOW NEGATIVE; URINE PHENCYCLIDINE SCREEN NEGATIVE
--- NOTE | 2017-08-13 18:32 | ER Document Report ---
ED Psych Disorder / Suicide - General Chief Complaint: Psych Problem Stated Complaint: PSYCH EVAL Time Seen by Provider: 08/13/17 17:15 Mode of Arrival: Ambulatory Information source: Patient TRAVEL OUTSIDE OF THE [place] IN LAST 30 DAYS: No - HPI Patient complains to provider of: Bizarre behavior Associated symptoms: Labile, Manic Similar symptoms previously: Yes Notes: Patient is a 27-year-old female presenting to the emergency room today in what appears to be a manic state, upon evaluation it is difficult to get any information from patient because she is quite tangential with her speech, not able to answer any questions directly, she does appear somewhat disheveled, and gets up in the middle of my questioning after telling me "I do not like questions", and requests a change of pants because she "shat myself", a review of previous records reveals patient has a history of manic behavior, is noncompliant with her medications and also has issues with substance abuse - Related Data Allergies/Adverse Reactions: No Known Allergies Allergy (Verified 08/13/17 16:36) Past Medical History - General Information source: Patient, [facility] - Social History Smoking Status: Never Smoker Chew tobacco use (# tins/day): No Frequency of alcohol use: None Drug Abuse: Marijuana Family History: None - Past Medical History Cardiac Medical History: Denies: Hx Hypertension Renal/ Medical History: Denies: Hx Peritoneal Dialysis Psychiatric Medical History: Reports: Hx Anxiety, Hx Bipolar Disorder, Hx Depression Past Surgical History: Reports: Hx Section - Immunizations Hx Diphtheria, Pertussis, Tetanus Vaccination: Yes Review of Systems - Review of Systems Constitutional: No symptoms reported EENT: No symptoms reported Cardiovascular: No symptoms reported Respiratory: No symptoms reported Gastrointestinal: No symptoms reported Genitourinary: No symptoms reported Female Genitourinary: No symptoms reported Musculoskeletal: No symptoms reported Skin: No symptoms reported Hematologic/Lymphatic: No symptoms reported Neurological/Psychological: See HPI -: Yes All other systems reviewed and negative Physical Exam - Vital signs Vitals: Temp Pulse Resp BP Pulse Ox 98.6 F 102 H 16 152/84 H 99 08/13/17 16:39 08/13/17 16:39 08/13/17 16:39 08/13/17 16:39 08/13/17 16:39 Interpretation: Tachycardic - General General appearance: Appears well, Alert - HEENT Head: Normocephalic, Atraumatic Eyes: Normal Pupils: PERRL - Respiratory Respiratory status: No respiratory distress Chest status: Nontender Breath sounds: Normal Chest palpation: Normal - Cardiovascular Rhythm: Regular Heart sounds: Normal auscultation Murmur: No - Abdominal Inspection: Normal Distension: No distension Bowel sounds: Normal Tenderness: Nontender Organomegaly: No organomegaly - Back Back: Normal, Nontender - Extremities General upper extremity: Normal inspection, Nontender, Normal color, Normal ROM , Normal temperature General lower extremity: Normal inspection, Nontender, Normal color, Normal ROM , Normal temperature, Normal weight bearing. No: Lissy's sign - Neurological Neuro grossly intact: Yes Cognition: Normal Orientation: AAOx4 Odin Coma Scale Eye Opening: Spontaneous Odin Coma Scale Verbal: Oriented Padma Coma Scale Motor: Obeys Commands Odin Coma Scale Total: 15 Speech: Normal Motor strength normal: LUE, RUE, LLE, RLE Sensory: Normal - Psychological Associated symptoms: Labile, Manic - Skin Skin Temperature: Warm Skin Moisture: Dry Skin Color: Normal Course - Re-evaluation Re-evalutation: 08/13/17 18:31 Patient presents to the emergency room in a manic state, her speech is tangential, she is disheveled, and cannot answer questions directly, she has a history of this behavior previously as well as substance abuse, patient was placed on IVC paperwork for further evaluation by mental health team in the morning, intramuscular medications have been ordered - Vital Signs Vital signs: Temp Pulse Resp BP Pulse Ox 98.6 F 102 H 16 152/84 H 99 08/13/17 16:39 08/13/17 16:39 08/13/17 16:39 08/13/17 16:39 08/13/17 16:39 - Laboratory Result Diagrams: 08/13/17 17:05 08/13/17 17:05 Laboratory results interpreted by me: 08/13/17 08/13/17 08/13/17 17:05 17:05 17:41 WBC 12.3 H RBC 3.69 L Hgb 11.3 L Hct 34.4 L RDW 14.3 H Seg Neutrophils % 82.4 H Lymphocytes % 11.4 L Absolute Neutrophils 10.2 H Total Protein 6.1 L Urine Blood SMALL H Ur Leukocyte Esterase TRACE H Salicylates < 1.0 L Acetaminophen < 10 L - EKG Interpretation by Me EKG shows normal: Sinus rhythm Rate: Normal Rhythm: NSR Discharge - Discharge Clinical Impression: Marijuana abuse, Mental health disorder Condition: Stable Disposition: PSYCH HOSP/UNIT
[2017-08-13] MEDS ORDERED: HALOPERIDOL LACTATE INJ 5 MG/1 ML VIAL IM ONE (18:39)
[2017-08-13] MEDS ORDERED: DIPHENHYDRAMINE HCL 50 MG/ML VIAL IM ONE (18:44)
[2017-08-13] MEDS ORDERED: ZIPRASIDONE MESYLATE INJ/PF 20 MG SDV IM ONE ×2 (18:50→19:05)
[2017-08-13] MEDS ORDERED: LORAZEPAM INJ 2 MG/1 ML VIAL IM ONE (19:05)
--- NOTE | 2017-08-14 03:54 | EKG REPORT ---
SEVERITY:- ABNORMAL ECG - SINUS RHYTHM LEFT ANTERIOR FASCICULAR BLOCK : Confirmed by: Milli Felipe MD 14-Aug-2017 03:54:06
[2017-08-14] MEDS ORDERED: HALOPERIDOL 5 MG TABLET PO ONE (06:42)
--- NOTE | 2017-08-14 06:47 | ER Document Report ---
Doctor's Note Notes: 08/14/17 06:46 Nurse asked me to go evaluate the patient to see if she needs medication because she is becoming hyperactive and at times agitated. When I walk in the room she has that she is on the floor and she is holding them on the floor. She does come talk to me. She is pleasant but a little bit hyper. She is agreeable to trying some medication. She also mentions that she was at the [facility]. I informed her that I would be up to the discharging physician. Patient has no further complaints at this time. I will order 5 mg of oral Haldol.
[2017-08-14] MEDS ORDERED: NICOTINE 21 MG/24 HR PATCH.TD24 TD ONE (10:17)
--- NOTE | 2017-08-14 10:17 | ER Document Report ---
Doctor's Note Notes: 08/14/17 10:14 Patient awake and alert, standing at bedside, continues to have rapid tangential speech although it is slightly improved from yesterday evening when I initially saw her, she does report having rectal irritation from hard formed bowel movements, she complains of blisters on her feet, is requesting a control patch and a nicotine patch, she is also requested that she no longer receive medication intramuscularly but is agreeable to taking pills, specifically requesting Ativan, Geodon, Haldol and Cogentin, patient is also requesting that her discharge be expedited today as she has an appointment to see someone about tutoring, when I question what 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
[2017-08-14] MEDS ORDERED: HALOPERIDOL 5 MG TABLET PO SCH (10:45)
[2017-08-14] MEDS ORDERED: MEDROXYPROGESTERONE ACET INJ 150 MG/1 ML VIAL IM ONE (10:46)
[2017-08-14] MEDS: BENZTROPINE MESYLATE 1 MG TABLET PO SCH (11:10)
[2017-08-14] MEDS: IBUPROFEN 600 MG TABLET PO PRN (11:11)
[2017-08-14] MEDS ORDERED: HYDROCORTISONE ACETATE 25 MG SUPP.RECT PR ONE (11:37)
[2017-08-14] MEDS ORDERED: ZIPRASIDONE HCL 20 MG CAPSULE PO ONE (18:39)
[2017-08-14] MEDS ORDERED: HYDROCORTISONE ACETATE 25 MG SUPP.RECT PR SCH (18:45)
[2017-08-14] MEDS ORDERED: DIPHENHYDRAMINE HCL 50 MG/ML VIAL IM ONE (20:48)
[2017-08-14] MEDS ORDERED: MIDAZOLAM 2 MG/2 ML INJ IM ONE (20:48)
[2017-08-15] MEDS ORDERED: ACETAMINOPHEN 325 MG TABLET PO ONE (03:16)
[2017-08-15] MEDS ORDERED: ZIPRASIDONE MESYLATE INJ/PF 20 MG SDV IM ONE (05:24)
--- NOTE | 2017-08-15 10:10 | ER Document Report ---
Doctor's Note Notes: 08/15/17 10:09 Rounds: Chart reviewed and patient interviewed. Patient is being evaluated for being manic. Vital signs are all normal. Lab work was essentially unremarkable , although her white cell count was 12,300. No signs or symptoms of infection. Urine looks like a contaminated specimen, not an infection. Drug screen was positive for marijuana. Patient appears to be medically stable for transfer or discharge. Jordan Chan MD
[2017-08-15] MEDS: BENZTROPINE MESYLATE 1 MG TABLET PO SCH (11:02)
[2017-08-15] MEDS: IBUPROFEN 600 MG TABLET PO PRN (11:05)
[2017-08-15 12:34] VITALS: BP 140/93
== END 2017-08-15 12:21 | disposition home or self-care (01) ==
LOC: ER 16:31
DX: F31.9 Bipolar disorder, unspecified (principal); F12.10 Cannabis abuse, uncomplicated
CPT/HCPCS: 93005; 36415; 80307 ×4; 85025; 81025; 80053; 81001; 93010; J3490 ×5; J0515; J1200; J2060; J3486 ×2; 96372; 96374; 99285; J1050; J2250

== ENCOUNTER 2017-08-20 20:05 | Emergency (ER) | payer OTHER, MEDICAID | END 2017-08-20 20:45 | disposition left against medical advice (07) | LOC: ER 20:05 | DX: Z53.21 Procedure and treatment not carried out due to patient leaving prior to being seen by health care provider (principal) ==

== ENCOUNTER 2017-08-22 07:10 | Emergency (ER) | payer MEDICAID, OTHER ==
[2017-08-22 07:34] LABS: ABSOLUTE EOSINOPHILS # (AUTO) 0.4 10^3/uL (0.0-0.6); ABSOLUTE LYMPHOCYTES (AUTO) 1.8 10^3/uL (0.5-4.7); ABSOLUTE MONOCYTES (AUTO) 0.7 10^3/uL (0.1-1.4); ABSOLUTE NEUT (AUTO) 6.1 10^3/uL (1.7-8.2); BASOPHILS % (AUTO) 0.5 % (0-2); EOSINOPHILS % (AUTO) 4.2 % (0-6); HEMATOCRIT 35.2 % (36.0-47.0); HEMOGLOBIN 11.7 g/dL (12.0-15.5); HGB HCT DIFFERENCE -0.1; LYMPHOCYTES % (AUTO) 19.8 % (13-45); MEAN CORPUSCULAR HGB CONC 33.2 g/dL (32.0-36.0); MEAN CORPUSCULAR VOLUME 93 fl (80-97); MONOCYTES % (AUTO) 7.5 % (3-13); RED BLOOD COUNT 3.77 10^6/uL (3.72-5.28); RED CELL DISTRIBUTION WIDTH 14.9 % (11.5-14.0)
[2017-08-22 07:52] LABS: ALANINE AMINOTRANSFERASE 45 U/L (9-52); ALBUMIN 3.8 g/dL (3.5-5.0); ALKALINE PHOSPHATASE 76 U/L (38-126); ANION GAP 10 (5-19); ASPARTATE AMINO TRANSFERASE 30 U/L (14-36); BILIRUBIN,DIRECT 0.5 mg/dL (0.0-0.4); BILIRUBIN,TOTAL 0.6 mg/dL (0.2-1.3); BLOOD UREA NITROGEN 11 mg/dL (7-20); CALCIUM 9.3 mg/dL (8.4-10.2); CARBON DIOXIDE 25 mmol/L (22-30); CHLORIDE 111 mmol/L (98-107); GLUCOSE 89 mg/dL (75-110); POTASSIUM 4.3 mmol/L (3.6-5.0); SODIUM 145.5 mmol/L (137-145); TOTAL PROTEIN 6.3 g/dL (6.3-8.2)
[2017-08-22 08:08] LABS: ALCOHOL < 10 mg/dL (NONE DETECTED)
[2017-08-22 08:14] LABS: AMORPHOUS SEDIMENT,URINE TRACE /HPF; APPEARANCE,URINE CLOUDY; BILIRUBIN,URINE NEGATIVE (NEGATIVE); GLUCOSE, URINE NEGATIVE (NEGATIVE); KETONES,URINE NEGATIVE (NEGATIVE); LEUKOCYTE ESTERASE,URINE SMALL (NEGATIVE); NITRITE,URINE NEGATIVE (NEGATIVE); PROTEIN,URINE NEGATIVE (NEGATIVE); URINE SPECIFIC GRAVITY 1.014
[2017-08-22 08:28] LABS: URINE BARBITURATES SCREEN NEGATIVE; URINE METHADONE SCREEN NEGATIVE; URINE OPIATES LOW NEGATIVE; URINE PHENCYCLIDINE SCREEN NEGATIVE
--- NOTE | 2017-08-22 09:01 | ER Document Report ---
ED General - General Chief Complaint: Psych Problem Stated Complaint: IVC WITH PAPERS Time Seen by Provider: 08/22/17 07:39 TRAVEL OUTSIDE OF THE [place] IN LAST 30 DAYS: No - HPI Patient complains to provider of: Psychological evaluation Notes: Patient is brought in by local law enforcement for psychological evaluation. Patient has a history of bipolar disease. According to the IVC paperwork patient was found out of foreclosed house patient was refusing to seek care home also patient was noticed to have wounds on her feet now measures refusing care for these wounds therefore was thought to be a threat to herself and placed on IVC paperwork. By my evaluation patient is belligerent toward staff however she is upset that she was brought back here patient is requesting to be discharged patient denies any homicidal suicidal thoughts at this time. - Related Data Allergies/Adverse Reactions: No Known Allergies Allergy (Verified 08/22/17 07:18) Past Medical History - Social History Smoking Status: Current Every Day Smoker Frequency of alcohol use: Social Drug Abuse: Marijuana Family History: None - Past Medical History Cardiac Medical History: Denies: Hx Hypertension Renal/ Medical History: Denies: Hx Peritoneal Dialysis Psychiatric Medical History: Reports: Hx Anxiety, Hx Bipolar Disorder, Hx Depression Past Surgical History: Reports: Hx Section - Immunizations Hx Diphtheria, Pertussis, Tetanus Vaccination: Yes Review of Systems - Review of Systems Constitutional: No symptoms reported EENT: No symptoms reported Cardiovascular: No symptoms reported Respiratory: No symptoms reported Gastrointestinal: No symptoms reported Genitourinary: No symptoms reported Female Genitourinary: No symptoms reported Musculoskeletal: No symptoms reported Skin: No symptoms reported Hematologic/Lymphatic: No symptoms reported Neurological/Psychological: No symptoms reported -: Yes All other systems reviewed and negative Physical Exam - Vital signs Vitals: Temp Pulse Resp BP Pulse Ox 97.6 F 91 18 150/90 H 99 08/22/17 07:13 08/22/17 07:13 08/22/17 07:13 08/22/17 07:13 08/22/17 07:13 Interpretation: Normal - General General appearance: Appears well, Alert - HEENT Head: Normocephalic, Atraumatic Eyes: Normal Pupils: PERRL - Respiratory Respiratory status: No respiratory distress Chest status: Nontender Breath sounds: Normal Chest palpation: Normal - Cardiovascular Rhythm: Regular Heart sounds: Normal auscultation Murmur: No - Abdominal Inspection: Normal Distension: No distension Bowel sounds: Normal Tenderness: Nontender Organomegaly: No organomegaly - Back Back: Normal, Nontender - Extremities General upper extremity: Normal inspection, Nontender, Normal color, Normal ROM , Normal temperature General lower extremity: Normal inspection, Nontender, Normal color, Normal ROM , Normal temperature, Normal weight bearing. No: Lissy's sign - Neurological Neuro grossly intact: Yes Cognition: Normal Orientation: AAOx4 [place] Coma Scale Eye Opening: Spontaneous [place] Coma Scale Verbal: Oriented [place] Coma Scale Motor: Obeys Commands [place] Coma Scale Total: 15 Speech: Normal Motor strength normal: LUE, RUE, LLE, RLE Sensory: Normal - Psychological Associated symptoms: Angry - Skin Skin Temperature: Warm Skin Moisture: Dry Skin Color: Normal Course - Re-evaluation Re-evalutation: 08/22/17 14:33 Patient was evaluated by our psychiatric team patient does not look to me any IVC criteria at this time. Patient's baseline patient is requesting a refill of her medications Haldol and Cogentin. I provided the patient a prescription for 3 day supply these medications instructed the patient to follow-up with her psychiatric providers on Thursday patient states an understanding will be discharged home. - Vital Signs Vital signs: Temp Pulse Resp BP Pulse Ox 97.2 F 86 20 154/80 H 100 08/22/17 09:06 08/22/17 09:06 08/22/17 09:06 08/22/17 09:06 08/22/17 09:06 - Laboratory Result Diagrams: 08/22/17 07:21 08/22/17 07:21 Laboratory results interpreted by me: 08/22/17 08/22/17 08/22/17 07:21 07:21 07:55 Hgb 11.7 L Hct 35.2 L RDW 14.9 H Sodium 145.5 H Chloride 111 H Direct Bilirubin 0.5 H Urine Urobilinogen 2.0 H Ur Leukocyte Esterase SMALL H Salicylates < 1.0 L Acetaminophen < 10 L Discharge - Discharge Clinical Impression: Bipolar 1 disorder, Superficial abrasion Condition: Good Disposition: HOME, SELF-CARE Instructions: Bipolar Disorder ([facility]) Additional Instructions: Follow-up with your mental health provider on Thursday. Prescriptions: Benztropine Mesylate [Cogentin 1 mg Tablet] 1 tab PO DAILY #3 tab Haloperidol [Haldol 5 mg Tablet] 5 mg PO BID #6 tablet Referrals: [facility] [Provider Group] - Follow up as needed
[2017-08-22 09:12] VITALS: BP 154/80
--- NOTE | 2017-08-22 09:52 | ER Document Report ---
ED Psych Disorder / Suicide - General Chief Complaint: Psych Problem Stated Complaint: IVC WITH PAPERS Time Seen by Provider: 08/22/17 07:39 TRAVEL OUTSIDE OF THE [place] IN LAST 30 DAYS: No - HPI Notes: Patient disclosed he is upset because her CPS worker told her "her man" is "not my man, he is the father of my children." Patient disclosed she has living "here and there" and continues to state she has been clean. Patient denies report from [facility] that she was taking other people's belongings but confirms she was laying in the grass. Patient is alert and orientated to person place time and circumstance. Mood is irritable with labile affect. Clinician notes this is baseline for patient. Patient denies suicidal and homicidal ideation. Patient denies auditory visual hallucinations. Delusions were absent and behaviors congruent with intact reality based presentation i.e. organized linear thinking. Eye contact was well -maintained. Conversational speech was liable with notable adjustments in who she was talking to i.e. verbally aggressive with [facility] nursing and security, while calm and within normal rate tone and prosody with clinician. Intellectual abilities appear to be within average range. Attention and concentration were good. Insight, judgment, impulse control are historically poor due to substance abuse. 296.40 (F31.9) bipolar 1 disorder; Unspecified Impression\\plan: Patient is recommended for rescind of IVC and is considered psychiatrically cleared. Patient does not meet IVC criteria per [place] 122C. Patient denies suicidal and homicidal ideation. Delusions were absent and behaviors congruent with intact reality based presentation i.e. organized and linear thinking. This patient is well-known to this clinician and department. Patient is currently demonstrating at baseline which includes substance abuse and manipulative behavior that is congruent with attempting to gain unknown secondary gains. Patient is also noted to have inconsistent communication and mood demonstrating her ability to control herself i.e. when speaking with clinician versus other staff members. Patient was engaging in possible illegal activities when engaged with [facility]. Dr. Deleon was consulted and the care and management of this patient; attending physician is in agreement with recommendations and disposition. - Related Data Allergies/Adverse Reactions: No Known Allergies Allergy (Verified 08/22/17 07:18) Past Medical History - Social History Smoking Status: Current Every Day Smoker Frequency of alcohol use: Social Drug Abuse: Marijuana Family History: None - Past Medical History Cardiac Medical History: Denies: Hx Hypertension Renal/ Medical History: Denies: Hx Peritoneal Dialysis Psychiatric Medical History: Reports: Hx Anxiety, Hx Bipolar Disorder, Hx Depression Past Surgical History: Reports: Hx Section - Immunizations Hx Diphtheria, Pertussis, Tetanus Vaccination: Yes Physical Exam - Vital signs Vitals: Temp Pulse Resp BP Pulse Ox 97.6 F 91 18 150/90 H 99 08/22/17 07:13 08/22/17 07:13 08/22/17 07:13 08/22/17 07:13 08/22/17 07:13 Course - Vital Signs Vital signs: Temp Pulse Resp BP Pulse Ox 97.2 F 86 20 154/80 H 100 08/22/17 09:06 08/22/17 09:06 08/22/17 09:06 08/22/17 09:06 08/22/17 09:06 - Laboratory Result Diagrams: 08/22/17 07:21 08/22/17 07:21 Laboratory results interpreted by me: 08/22/17 08/22/17 08/22/17 07:21 07:21 07:55 Hgb 11.7 L Hct 35.2 L RDW 14.9 H Sodium 145.5 H Chloride 111 H Direct Bilirubin 0.5 H Urine Urobilinogen 2.0 H Ur Leukocyte Esterase SMALL H Salicylates < 1.0 L Acetaminophen < 10 L Discharge - Discharge Clinical Impression: Bipolar 1 disorder, Superficial abrasion Instructions: Bipolar Disorder ([facility]) Additional Instructions: Follow-up with your mental health provider on Thursday. Prescriptions: Benztropine Mesylate [Cogentin 1 mg Tablet] 1 tab PO DAILY #3 tab Haloperidol [Haldol 5 mg Tablet] 5 mg PO BID #6 tablet Referrals: [facility] [Provider Group] - Follow up as needed
--- NOTE | 2017-08-23 16:56 | EKG REPORT ---
SEVERITY:- OTHERWISE NORMAL ECG - SINUS RHYTHM LEFT AXIS DEVIATION : Confirmed by: Milli Felipe MD 23-Aug-2017 16:55:43
== END 2017-08-22 09:20 | disposition home or self-care (01) ==
LOC: ER 07:10
DX: F31.9 Bipolar disorder, unspecified (principal); S90.819A Abrasion, unspecified foot, initial encounter; X58.XXXA Exposure to other specified factors, initial encounter; F17.200 Nicotine dependence, unspecified, uncomplicated
CPT/HCPCS: 36415; 80053; 80307; 81001; 84702; 85025; 93005; 93010; 99284

== ENCOUNTER 2017-08-23 08:26 | Emergency (ER) | payer OTHER ==
--- NOTE | 2017-08-23 08:36 | ER Document Report ---
Addendum entered and electronically signed by JULIO CESAR COSME LPC 08/24/17 09: 14: ED Psych Disorder / Suicide - General Chief Complaint: Psych Problem Stated Complaint: IVC WITH PAPERS Time Seen by Provider: 08/23/17 08:36 Mode of Arrival: Ambulatory Information source: Patient, [facility] Records TRAVEL OUTSIDE OF THE [place] IN LAST 30 DAYS: No - HPI Patient complains to provider of: Bizarre behavior Onset: Other Onset was: Cannot confirm Situational problems related to: Other Normal mood: Yes Associated symptoms: Flat affect, Manic Similar symptoms previously: Yes Recently seen / treated by doctor: Yes Notes: Conducted check in with patient who is a 27 year old female under IVC at [facility] ER. Patient is well known to this clinician and department for numerous prior episodes of similar etiology. Patient this morning is manic, which is considered her baseline. Patient states she has a court date this morning for child custody and must be in attendance. Patient today is A&O, making coherent statements, etc. Patient denies suicidal ideations, intent, plan, or means. Patient states she is in agreement to follow up with [facility]. Unspecified Bipolar and Related Disorder Patient is psychiatrically cleared for discharge. Patient is recommended to rescind IVC and go directly to her court hearing. Patient no longer meets criteria for IVC per the [id number] as she denies SI/HI, and is presenting at her baseline functioning. Patient is recommended to follow up with [facility] for outpatient and medication management. I consulted with Dr. Deleon in regards to the care and management of this patient. - Related Data Allergies/Adverse Reactions: No Known Allergies Allergy (Verified 08/22/17 07:18) Addendum entered and electronically signed by JULIO CESAR COSME LPC 08/24/17 09: 07: Discharge - Discharge Clinical Impression: IVC Bipolar disorder Qualifiers: Active/Remission status: currently active Current bipolar episode type: mixed Current episode severity: unspecified Qualified Code(s): F31.60 - Bipolar disorder, current episode mixed, unspecified Condition: Stable Disposition: HOME, SELF-CARE Additional Instructions: Bipolar Disorder Bipolar disorder is also called manic-depressive disorder. Depression alternates with brain hyperactivity called fermín. Each phase lasts from several days to a few weeks. We don't know exactly what causes bipolar disorder , but it's treatable. During the "manic phase," you may feel elated and energetic. You may have racing thoughts, rapid speech, increased activity, and grandiose ideas. During this time, you may not realize how poor your judgement is. Inappropriate spending, drug abuse, excessive alcohol use, marriage problems, and irresponsible sexual behavior are common during the manic phase. During the "depressive phase," you might feel depressed, guilty, worthless , fatigued, and unable to concentrate. You might have thoughts of suicide. Good treatments are available for bipolar disorder. Whitsett is a classic drug for bipolar disorder, and is still often useful. If the manic phase is very mild, an antidepressant alone can be prescribed. If the manic phase is very severe, an antipsychotic medicine (such as Haldol) may be needed. The treatment must be matched to your symptoms, so it's important to work closely with your psychiatric care provider. Contact your physician, the hospital emergency center, crisis line, or your counsellor if you are losing control or having self-destructive thoughts. Please go directly to your court hearing. Please follow up with [facility] for outpatient services. They offer mobile crisis and office appointments. Please do not use drugs. Referrals: [facility] [Provider Group] - Follow up in 3-5 days Original Note: ED Psych Disorder / Suicide - General Mode of Arrival: Ambulatory Information source: Patient TRAVEL OUTSIDE OF THE [place] IN LAST 30 DAYS: No <FRANCESCO GARCIA - Last Filed: 08/23/17 19:27> <SAÚL BRENNAN - Last Filed: 08/24/17 08:21> - General Information source: [facility] Records - [facility] Patient complains to provider of: Bizarre behavior Onset: Just prior to arrival Onset was: Sudden Suicide Risk Factors: Bipolar, Substance abuse Situational problems related to: Significant other, Other - DSS removed twin babies at due to positive drug test; little to no contact with her other children whom live out of state with their father Normal mood: No Associated symptoms: Labile, Manic, Tangential speech Similar symptoms previously: Yes Recently seen / treated by doctor: Yes - D/C yesterday from ER <JULIO CESAR COSME - Last Filed: 08/24/17 09:09> <ABDIRAHMAN PRETTY - Last Filed: 08/24/17 09:16> - General Stated Complaint: IVC WITH PAPERS Time Seen by Provider: 08/23/17 08:36 Notes: 27 yo female brought in with IVC papers beause she was wandering from home to [place] [facility]. Claimed pile of debris was her home. Was unable to contract for safety. 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 Then states she has to put 6 children on the bus, thinks it is july. All sentences are disjointed and are not realistic. She is not oriented to time and thought processes are not real. (FRANCESCO GARCIA) - HPI Notes: Patient is a 27 year old female who presented this morning via [facility] under IVC. Patient is known to this clinician and this department for numerous prior episodes of similar etiology. Patient has a long documented history of substance abuse and Bipolar Disorder. Patient today presents with rambling speech, unable to remain on topic or make sensical comments. Patient struggles to remain awake for full evaluation. Patient's toxicology was positive for marijuana only. Patient is groggy and only oriented to name at this time. Mood is labile with odd affect. Patient does not answer questions in regards to suciidal/homicidal ideations. Patient denies A/V H. It is unclear if patient is experiencing delusions, as she was reported to be knocking on various doors, making odd statements and referencing a pile of debris as her home. Thought processes were tangential. 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 Intellectual abilities were estimated to be under the influence. Attention and focus were poor. Insight, judgment, and impulse control were poor. 296.9 Unspecified Bipolar Disorder Unspecified Cannabis Related Disorder Unspecified Cocaine Use Disorder, per history Patient is recommended to continue under IVC for further evaluation and disposition. I consulted with Dr. Deleon in regards to the care and management of this patient. ED provider states she is in agreement with recommendations at this time. (JULIO CESAR COSME) - Related Data Allergies/Adverse Reactions: No Known Allergies Allergy (Verified 08/22/17 07:18) Past Medical History - General Information source: Patient - Social History Smoking Status: Unknown if Ever Smoked Frequency of alcohol use: Heavy - per pt Drug Abuse: None Lives with: Homeless - pt states she has 6 residences Family History: None - Past Medical History Cardiac Medical History: Denies: Hx Hypertension Renal/ Medical History: Denies: Hx Peritoneal Dialysis Psychiatric Medical History: Reports: Hx Anxiety, Hx Bipolar Disorder, Hx Depression Past Surgical History: Reports: Hx Section - Immunizations Hx Diphtheria, Pertussis, Tetanus Vaccination: Yes <FRANCESCO GARCIA Last Filed: 08/23/17 19:27> Review of Systems - Review of Systems Constitutional: No symptoms reported EENT: No symptoms reported Cardiovascular: No symptoms reported Respiratory: No symptoms reported Gastrointestinal: No symptoms reported Genitourinary: No symptoms reported Female Genitourinary: No symptoms reported Musculoskeletal: No symptoms reported Skin: See HPI Hematologic/Lymphatic: No symptoms reported Neurological/Psychological: No symptoms reported <FRANCESCO GARCIA Last Filed: 08/23/17 19:27> Physical Exam - Vital signs Interpretation: Normal - General General appearance: Appears well, Alert - HEENT Head: Normocephalic, Atraumatic Eyes: Normal Pupils: PERRL Neck: Supple - Respiratory Respiratory status: No respiratory distress Chest status: Nontender Breath sounds: Normal Chest palpation: Normal - Cardiovascular Rhythm: Regular Heart sounds: Normal auscultation Murmur: No - Abdominal Inspection: Normal Distension: No distension Bowel sounds: Normal Tenderness: Nontender Organomegaly: No organomegaly - Back Back: Normal, Nontender - Extremities General upper extremity: Normal inspection, Nontender, Normal color, Normal ROM , Normal temperature General lower extremity: Normal inspection, Nontender, Normal color, Normal ROM , Normal temperature, Normal weight bearing. No: Lissy's sign - Neurological Neuro grossly intact: Yes Cognition: Normal Orientation: AAOx4 [place] Coma Scale Eye Opening: Spontaneous [place] Coma Scale Verbal: Oriented [place] Coma Scale Motor: Obeys Commands [place] Coma Scale Total: 15 Speech: Normal Motor strength normal: LUE, RUE, LLE, RLE Sensory: Normal - Psychological Associated symptoms: Normal affect, Normal mood - Skin Skin Temperature: Warm Skin Moisture: Dry Skin Color: Normal <FRANCESCO GARCIA Last Filed: 08/23/17 19:27> - Vital signs Vitals: Temp Pulse Resp BP Pulse Ox 97.8 F 79 18 112/60 97 08/23/17 08:37 08/23/17 08:37 08/23/17 08:37 10/08/17 08:37 08/23/17 08:37 Course - Laboratory Result Diagrams: 08/23/17 09:35 08/23/17 09:35 - EKG Interpretation by Me EKG shows normal: Sinus rhythm Rate: Normal Rhythm: NSR <FRANCESCO GARCIA - Last Filed: 08/23/17 19:27> - Laboratory Result Diagrams: 08/23/17 09:35 08/23/17 09:35 <SAÚL BRENNAN - Last Filed: 08/24/17 08:21> - Laboratory Result Diagrams: 08/23/17 09:35 08/23/17 09:35 <JULIO CESAR COSME - Last Filed: 08/24/17 09:09> - Laboratory Result Diagrams: 08/23/17 09:35 08/23/17 09:35 <ABDIRAHMAN PRETTY - Last Filed: 08/24/17 09:16> - Re-evaluation Re-evalutation: 08/23/17 19:01 last entry started on xyprexia 5mg bid, cogentin 1mg daily. has been stable today, no outbursts. 08/23/17 19:24 pt now aggressive at the nursing station, cussing, spit the zyprexa out in the bathroom, Care transferred to [facility], ativan 2mg IM given now, nurse got it as verbal order. Placed order in chart for the dose already given 08/23/17 19:26 (FRANCESCO GARCIA) 08/23/17 21:25 Patient became very aggressive, spitting at and swearing at staff, threatening to leave and to hurt staff, was given Ativan, then Benadryl, then placed in restraints. She is calm now, sedated but arousable, restraints taken off. ( SAÚL BRENNAN) - Vital Signs Vital signs: Temp Pulse Resp BP Pulse Ox 98.6 F 88 18 117/66 98 08/24/17 05:29 08/24/17 05:29 08/24/17 05:29 08/24/17 05:29 08/24/17 05:29 - Laboratory Laboratory results interpreted by me: 08/23/17 08/23/17 09:35 09:35 RBC 3.49 L Hgb 11.0 L Hct 32.5 L RDW 14.7 H Chloride 108 H Total Protein 6.0 L Salicylates < 1.0 L Acetaminophen < 10 L Discharge <FRANCESCO GARCIA - Last Filed: 08/23/17 19:27> <SAÚL BRENNAN - Last Filed: 08/24/17 08:21> <MARCOS COSMEBETH - Last Filed: 08/24/17 09:09> <ABDIRAHMAN PRETTY - Last Filed: 08/24/17 09:16> - Discharge Clinical Impression: IVC Bipolar disorder Qualifiers: Active/Remission status: currently active Current bipolar episode type: mixed Current episode severity: unspecified Qualified Code(s): F31.60 - Bipolar disorder, current episode mixed, unspecified Condition: Stable Disposition: HOME, SELF-CARE Additional Instructions: Bipolar Disorder Bipolar disorder is also called manic-depressive disorder. Depression alternates with brain hyperactivity called fermín. Each phase lasts from several days to a few weeks. We don't know exactly what causes bipolar disorder , but it's treatable. During the "manic phase," you may feel elated and energetic. You may have racing thoughts, rapid speech, increased activity, and grandiose ideas. During this time, you may not realize how poor your judgement is. Inappropriate spending, drug abuse, excessive alcohol use, marriage problems, and irresponsible sexual behavior are common during the manic phase. During the "depressive phase," you might feel depressed, guilty, worthless , fatigued, and unable to concentrate. You might have thoughts of suicide. Good treatments are available for bipolar disorder. [place] is a classic drug for bipolar disorder, and is still often useful. If the manic phase is very mild, an antidepressant alone can be prescribed. If the manic phase is very severe, an antipsychotic medicine (such as Haldol) may be needed. The treatment must be matched to your symptoms, so it's important to work closely with your psychiatric care provider. Contact your physician, the hospital emergency center, crisis line, or your counsellor if you are losing control or having self-destructive thoughts. Please go directly to your court hearing. Please follow up with [facility] for outpatient services. They offer mobile crisis and office appointments. Please do not use drugs. Referrals: [facility] [Provider Group] - Follow up in 3-5 days
[2017-08-23] MEDS ORDERED: OLANZAPINE 5 MG TAB.RAPDIS PO ONE (09:57)
[2017-08-23] MEDS ORDERED: BENZTROPINE MESYLATE 1 MG TABLET PO ONE (09:58)
[2017-08-23 09:59] LABS: ABSOLUTE EOSINOPHILS # (AUTO) 0.2 10^3/uL (0.0-0.6); ABSOLUTE LYMPHOCYTES (AUTO) 1.8 10^3/uL (0.5-4.7); ABSOLUTE MONOCYTES (AUTO) 0.6 10^3/uL (0.1-1.4); ABSOLUTE NEUT (AUTO) 6.6 10^3/uL (1.7-8.2); BASOPHILS % (AUTO) 0.3 % (0-2); HEMATOCRIT 32.5 % (36.0-47.0); HGB HCT DIFFERENCE 0.5; MEAN CORPUSCULAR HEMOGLOBIN 31.4 pg (27.0-33.4); MEAN CORPUSCULAR HGB CONC 33.7 g/dL (32.0-36.0); MEAN CORPUSCULAR VOLUME 93 fl (80-97); MONOCYTES % (AUTO) 6.5 % (3-13); RED BLOOD COUNT 3.49 10^6/uL (3.72-5.28); RED CELL DISTRIBUTION WIDTH 14.7 % (11.5-14.0); SEGMENTED NEUTROPHILS % (AUTO) 71.2 % (42-78); WHITE BLOOD COUNT 9.2 10^3/uL (4.0-10.5)
[2017-08-23 10:15] LABS: ALANINE AMINOTRANSFERASE 40 U/L (9-52); ALBUMIN 3.5 g/dL (3.5-5.0); ALKALINE PHOSPHATASE 62 U/L (38-126); ANION GAP 10 (5-19); ASPARTATE AMINO TRANSFERASE 28 U/L (14-36); BILIRUBIN,DIRECT 0.4 mg/dL (0.0-0.4); BILIRUBIN,TOTAL 0.4 mg/dL (0.2-1.3); BLOOD UREA NITROGEN 9 mg/dL (7-20); CALCIUM 9.2 mg/dL (8.4-10.2); CARBON DIOXIDE 26 mmol/L (22-30); CHLORIDE 108 mmol/L (98-107); CREATININE RESULT 0.69 mg/dL (0.52-1.25); GLUCOSE 90 mg/dL (75-110); POTASSIUM 3.9 mmol/L (3.6-5.0); SODIUM 143.5 mmol/L (137-145)
[2017-08-23 10:18] LABS: ALCOHOL < 10 mg/dL (NONE DETECTED)
[2017-08-23] MEDS: OLANZAPINE 5 MG TABLET PO SCH ×2 (10:56→18:52)
[2017-08-23 10:57] LABS: APPEARANCE,URINE CLEAR; BILIRUBIN,URINE NEGATIVE (NEGATIVE); GLUCOSE, URINE NEGATIVE (NEGATIVE); KETONES,URINE NEGATIVE (NEGATIVE); LEUKOCYTE ESTERASE,URINE NEGATIVE (NEGATIVE); NITRITE,URINE NEGATIVE (NEGATIVE); PROTEIN,URINE NEGATIVE (NEGATIVE); URINE SPECIFIC GRAVITY 1.009; UROBILINOGEN,URINE NEGATIVE mg/dL (<2.0)
[2017-08-23 11:14] LABS: URINE BARBITURATES SCREEN NEGATIVE; URINE METHADONE SCREEN NEGATIVE; URINE OPIATES LOW NEGATIVE; URINE PHENCYCLIDINE SCREEN NEGATIVE
--- NOTE | 2017-08-23 16:56 | EKG REPORT ---
SEVERITY:- OTHERWISE NORMAL ECG - SINUS RHYTHM LEFT AXIS DEVIATION : Confirmed by: Milli Felipe MD 23-Aug-2017 16:55:33
[2017-08-23] MEDS ORDERED: LORAZEPAM INJ 2 MG/1 ML VIAL ONE (19:16)
[2017-08-23] MEDS ORDERED: LORAZEPAM INJ 2 MG/1 ML VIAL IM ONE (19:25)
[2017-08-23] MEDS ORDERED: DIPHENHYDRAMINE HCL 50 MG/ML VIAL ONE (19:32)
[2017-08-23] MEDS ORDERED: DIPHENHYDRAMINE HCL 50 MG/ML VIAL IM ONE (19:35)
[2017-08-24] MEDS ORDERED: HALOPERIDOL LACTATE INJ 5 MG/1 ML VIAL IM ONE (00:51)
[2017-08-24] MEDS ORDERED: HALOPERIDOL LACTATE INJ 5 MG/1 ML VIAL ONE (00:52)
--- NOTE | 2017-08-24 09:12 | ER Document Report ---
Doctor's Note Notes: 08/24/17 09:11 Patient was evaluated. No need at this time to continue with mental hold/ involuntary commitment paperwork. Patient has court hearing that she needs to attend. Please see the mental health notes for further treatment decisions. Will DC at this time.
[2017-08-24 09:21] VITALS: BP 118/65
[2017-08-25] MEDS ORDERED: BENZTROPINE MESYLATE 1 MG TABLET PO SCH (10:00)
== END 2017-08-24 09:21 | disposition home or self-care (01) ==
LOC: ER 08:26
DX: F31.60 Bipolar disorder, current episode mixed, unspecified (principal); F12.99 Cannabis use, unspecified with unspecified cannabis-induced disorder; F14.99 Cocaine use, unspecified with unspecified cocaine-induced disorder
CPT/HCPCS: 93005; 99284; 96372; 96374; 36415; 80307 ×4; 85025; 80053; 81001; 93010; J3490 ×3; J1200; J1630; J2060

== ENCOUNTER 2017-08-25 11:42 | Emergency (ER) | payer OTHER ==
[2017-08-25 11:54] VITALS: BP 151/86
== END 2017-08-25 12:23 | disposition left against medical advice (07) ==
LOC: ER 11:42
DX: Z53.9 Procedure and treatment not carried out, unspecified reason (principal); H92.09 Otalgia, unspecified ear

== ENCOUNTER 2017-11-25 22:53 | Emergency (ER) | payer SELFPAY ==
[2017-11-25] MEDS ORDERED: HALOPERIDOL 5 MG TABLET PO SCH (23:30)
[2017-11-25] MEDS ORDERED: BENZTROPINE MESYLATE 1 MG TABLET PO SCH (23:30)
[2017-11-26 00:06] LABS: ABSOLUTE EOSINOPHILS # (AUTO) 0.1 10^3/uL (0.0-0.6); ABSOLUTE LYMPHOCYTES (AUTO) 1.8 10^3/uL (0.5-4.7); ABSOLUTE MONOCYTES (AUTO) 0.8 10^3/uL (0.1-1.4); ABSOLUTE NEUT (AUTO) 6.6 10^3/uL (1.7-8.2); BASOPHILS % (AUTO) 0.5 % (0-2); EOSINOPHILS % (AUTO) 1.4 % (0-6); HEMATOCRIT 37.1 % (36.0-47.0); HEMOGLOBIN 12.4 g/dL (12.0-15.5); LYMPHOCYTES % (AUTO) 18.9 % (13-45); MEAN CORPUSCULAR HEMOGLOBIN 30.3 pg (27.0-33.4); MEAN CORPUSCULAR HGB CONC 33.3 g/dL (32.0-36.0); MEAN CORPUSCULAR VOLUME 91 fl (80-97); MONOCYTES % (AUTO) 8.7 % (3-13); PLATELET COUNT 322 10^3/uL (150-450); RED BLOOD COUNT 4.08 10^6/uL (3.72-5.28); RED CELL DISTRIBUTION WIDTH 15.3 % (11.5-14.0); SEGMENTED NEUTROPHILS % (AUTO) 70.5 % (42-78); TOTAL CELLS COUNTED % (AUTO) 100 %; WHITE BLOOD COUNT 9.4 10^3/uL (4.0-10.5)
[2017-11-26 00:21] LABS: ALANINE AMINOTRANSFERASE 28 U/L (9-52); ALBUMIN 4.6 g/dL (3.5-5.0); ALKALINE PHOSPHATASE 73 U/L (38-126); ANION GAP 12 (5-19); ASPARTATE AMINO TRANSFERASE 20 U/L (14-36); BILIRUBIN,DIRECT 0.2 mg/dL (0.0-0.4); BILIRUBIN,TOTAL 0.5 mg/dL (0.2-1.3); BLOOD UREA NITROGEN 12 mg/dL (7-20); CALCIUM 9.6 mg/dL (8.4-10.2); CARBON DIOXIDE 22 mmol/L (22-30); CHLORIDE 108 mmol/L (98-107); GLUCOSE 76 mg/dL (75-110); POTASSIUM 3.6 mmol/L (3.6-5.0); SODIUM 142.3 mmol/L (137-145); TOTAL PROTEIN 7.1 g/dL (6.3-8.2)
[2017-11-26 00:24] LABS: APPEARANCE,URINE CLEAR; BILIRUBIN,URINE NEGATIVE (NEGATIVE); COLOR,URINE STRAW; GLUCOSE, URINE NEGATIVE (NEGATIVE); KETONES,URINE NEGATIVE (NEGATIVE); LEUKOCYTE ESTERASE,URINE SMALL (NEGATIVE); NITRITE,URINE NEGATIVE (NEGATIVE); PROTEIN,URINE NEGATIVE (NEGATIVE); URINE SPECIFIC GRAVITY 1.003; UROBILINOGEN,URINE NEGATIVE mg/dL (<2.0)
[2017-11-26 00:28] LABS: ACETAMINOPHEN < 10 ug/mL (10-30); ALCOHOL < 10 mg/dL (NONE DETECTED); SALICYLATE < 1.0 mg/dL (2.0-20.0)
[2017-11-26 00:30] LABS: URINE AMPHETAMINES SCREEN NEGATIVE; URINE BARBITURATES SCREEN NEGATIVE; URINE BENZODIAZEPINES SCREEN NEGATIVE; URINE COCAINE SCREEN NEGATIVE; URINE MARIJUANA (THC) SCREEN UNCONFIRMED POSITIVE; URINE METHADONE SCREEN NEGATIVE; URINE PHENCYCLIDINE SCREEN NEGATIVE
--- NOTE | 2017-11-26 00:32 | ER Document Report ---
ED General - General TRAVEL OUTSIDE OF THE [place] IN LAST 30 DAYS: No <MIRIAM DONALD - Last Filed: 11/26/17 05:48> <АЛЕКСАНДР ROCHA - Last Filed: 11/26/17 09:39> <ABDIRAHMAN PRETTY - Last Filed: 11/26/17 09:51> - General Chief Complaint: Psych Problem Stated Complaint: PSYCH EVALUATION Time Seen by Provider: 11/25/17 23:23 Notes: Patient is a 19-year-old female with a history of bipolar disease. She is brought in by friend because of the concerns that she is hallucinating and not making a lot of sense. Said they seen this before whenever she has been off medications. She was recently released from correction. At that time she stopped taking her medications. She has not had a medications in over a week now. When asked the patient about this her responses are very tangential and did not always make sense with the questions I have asked her. She denies being suicidal but will not really answer me about depression. She is somewhat confrontational and gives responses that do not make a lot of sense. (MIRIAM DONALD) - Related Data Allergies/Adverse Reactions: No Known Allergies Allergy (Verified 08/22/17 07:18) Past Medical History - Social History Smoking Status: Unknown if Ever Smoked Frequency of alcohol use: None Drug Abuse: None Family History: None - Past Medical History Cardiac Medical History: Denies: Hx Hypertension Renal/ Medical History: Reports: Hx Peritoneal Dialysis Psychiatric Medical History: Reports: Hx Anxiety, Hx Bipolar Disorder, Hx Depression Past Surgical History: Reports: Hx Section - Immunizations Hx Diphtheria, Pertussis, Tetanus Vaccination: Yes <MIRIAM DONALD - Last Filed: 11/26/17 05:48> Review of Systems <MIRIAM DONALD - Last Filed: 11/26/17 05:48> <АЛЕКСАНДР ROCHA - Last Filed: 11/26/17 09:39> <ABDIRAHMAN PRETTY - Last Filed: 11/26/17 09:51> - Review of Systems Notes: My Normal Review Basic REVIEW OF SYSTEMS: CONSTITUTIONAL : Denies fever, chills, or sweats. Denies recent illness. EENT: Denies eye, ear, throat, or mouth pain or symptoms. Denies nasal or sinus congestion. CARDIOVASCULAR: Denies chest pain. RESPIRATORY: Denies cough, cold, or chest congestion. Denies shortness of breath, difficulty breathing, or wheezing. GASTROINTESTINAL: Denies abdominal pain. Denies nausea, vomiting, or diarrhea. Denies constipation. Last BM: MUSCULOSKELETAL: Denies neck or back pain or joint pain or swelling. SKIN: Denies rash or skin lesions. NEUROLOGICAL: Denies altered mental status or loss of consciousness. Denies headache. Denies weakness or paralysis or loss of use of either side. Denies problems with gait or speech. Denies sensory or motor loss. PSYCHIATRIC: Hallucinations. Tangential thought process. ALL OTHER SYSTEMS REVIEWED AND NEGATIVE. (MIRIAM DONALD) Physical Exam <MIRIAM DONALD - Last Filed: 11/26/17 05:48> <АЛЕКСАНДР ROCHA - Last Filed: 11/26/17 09:39> <ABDIRAHMAN PRETTY - Last Filed: 11/26/17 09:51> - Vital signs Vitals: Temp Pulse Resp BP Pulse Ox 98.4 F 88 20 145/87 H 98 11/25/17 23:02 11/25/17 23:02 11/25/17 23:02 11/25/17 23:02 11/25/17 23:02 - Notes Notes: General Appearance: Well nourished, alert, cooperative, no acute distress, no obvious discomfort. well Appearing. Vitals: reviewed, See vital signs table. Head: no swelling or tenderness to the head Eyes: PERRL, EOMI, Conjuctiva clear Mouth: No decreasd moisture Neck: Supple, no neck tenderness, No thyromegaly Lungs: No wheezing, No rales, No rhonci, No accessory muscle use, good air exchange bilaterally. Heart: Normal rate, Regular rythm, No murmur, no rub Abdomen: Normal BS, soft, No rigidity, No abdominal tenderness, No guarding, no rebound, no abdominal masses, no organomegaly Extremities: strength 5/5 in all extremities, good pulses in all extremities, no swelling or tenderness in the extremities, no edema. Skin: warm, dry, appropriate color, no rash Neuro: speech clear, oriented x 2, agitated affect with inappropriate responses to some questions., Renal nerves II through XII are intact. Patient moves all extremities without difficulty.. (MIRIAM DONALD) Course - Laboratory Result Diagrams: 11/25/17 23:45 11/25/17 23:45 <MIRIAM DONALD - Last Filed: 11/26/17 05:48> - Laboratory Result Diagrams: 11/25/17 23:45 11/25/17 23:45 <АЛЕКСАНДР ROCHA - Last Filed: 11/26/17 09:39> - Laboratory Result Diagrams: 11/25/17 23:45 11/25/17 23:45 <ABDIRAHMAN PRETTY - Last Filed: 11/26/17 09:51> - Re-evaluation Re-evalutation: 11/26/17 05:51 Patient is medically stable for psychiatric evaluation. I have ordered her Haldol and Cogentin. His other medications listed in her old med list I do not know if she is currently still supposed to be on and therefore have not ordered those. (MIRIAM DONALD) 11/26/17 09:46 Patient states that she is not suicidal, homicidal, or any other issues. Wants to leave. Denies any worsening symptoms or concerns at this time. Comfortable discharging based on mental health recommendations. (ABDIRAHMAN PRETTY) - Vital Signs Vital signs: Temp Pulse Resp BP Pulse Ox 98.6 F 80 16 136/75 H 100 11/26/17 09:06 11/26/17 09:06 11/26/17 09:06 11/26/17 09:06 11/26/17 09:06 - Laboratory Laboratory results interpreted by me: 11/25/17 11/25/17 11/25/17 23:45 23:45 23:45 RDW 15.3 H Chloride 108 H Urine Blood SMALL H Ur Leukocyte Esterase SMALL H Salicylates < 1.0 L Acetaminophen < 10 L - EKG Interpretation by Me Additional EKG results interpreted by me: 11/26/17 00:32 EKG is reviewed and interpreted by me. EKG shows normal sinus rhythm with a rate of [address] segment elevation or depression. No ischemic T-wave inversions. MD interval, QRS duration, QTc intervals are within normal range. Old EKG for comparison is from August 23, 2017. (MIRIAM DONALD) Discharge <MIRIAM DONALD - Last Filed: 11/26/17 05:48> <АЛЕКСАНДР ROCHA - Last Filed: 11/26/17 09:39> <ABDIRAHMAN PRETTY - Last Filed: 11/26/17 09:51> - Discharge Clinical Impression: Bipolar 1 disorder Condition: Stable Disposition: HOME, SELF-CARE Additional Instructions: Bipolar Disorder Bipolar disorder is also called manic-depressive disorder. Depression alternates with brain hyperactivity called fermín. Each phase lasts from several days to a few weeks. We don't know exactly what causes bipolar disorder , but it's treatable. During the "manic phase," you may feel elated and energetic. You may have racing thoughts, rapid speech, increased activity, and grandiose ideas. During this time, you may not realize how poor your judgement is. Inappropriate spending, drug abuse, excessive alcohol use, marriage problems, and irresponsible sexual behavior are common during the manic phase. During the "depressive phase," you might feel depressed, guilty, worthless , fatigued, and unable to concentrate. You might have thoughts of suicide. Good treatments are available for bipolar disorder. [place] is a classic drug for bipolar disorder, and is still often useful. If the manic phase is very mild, an antidepressant alone can be prescribed. If the manic phase is very severe, an antipsychotic medicine (such as Haldol) may be needed. The treatment must be matched to your symptoms, so it's important to work closely with your psychiatric care provider. Contact your physician, the hospital emergency center, crisis line, or your counsellor if you are losing control or having self-destructive thoughts. Please follow-up with [facility] upon discharge for your continued mental health services. Prescriptions: Benztropine Mesylate [Benztropine Mesylate 2 mg Tablet] 1 mg PO DAILY 7 Days #7 tab Haloperidol [Haldol 5 mg Tablet] 5 mg PO DAILY 7 Days #7 tablet Sertraline HCl [Zoloft 50 mg Tablet] 50 mg PO DAILY #30 tablet Referrals: [facility] [Outside] - 11/26/17
--- NOTE | 2017-11-26 07:56 | EKG REPORT ---
SEVERITY:- OTHERWISE NORMAL ECG - SINUS RHYTHM LEFT AXIS DEVIATION : Confirmed by: Ruben Ramos MD 26-Nov-2017 07:55:23
[2017-11-26 09:07] VITALS: BP 136/75
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
== END 2017-11-26 10:18 | disposition home or self-care (01) ==
LOC: ER 22:53
DX: F31.9 Bipolar disorder, unspecified (principal); T43.4X6A Underdosing of butyrophenone and thiothixene neuroleptics, initial encounter; T44.3X6A Underdosing of other parasympatholytics [anticholinergics and antimuscarinics] and spasmolytics, initial encounter; Z91.14 Patient's other noncompliance with medication regimen
CPT/HCPCS: 36415; 80053; 80307; 81001; 84703; 85025; 93005; 93010; 99285

== ENCOUNTER 2018-01-30 00:19 | Emergency (ER) | payer SELFPAY ==
[2018-01-30 00:30] VITALS: BP 141/96
[2018-01-30] MEDS ORDERED: BENZTROPINE MESYLATE 1 MG TABLET PO ONE (02:00)
[2018-01-30] MEDS ORDERED: CARBAMAZEPINE 200 MG TABLET PO ONE (02:00)
[2018-01-30] MEDS ORDERED: HYDROXYZINE PAMOATE 50 MG CAPSULE PO ONE (02:00)
[2018-01-30] MEDS ORDERED: SERTRALINE HCL 50 MG TABLET PO ONE (02:00)
[2018-01-30] MEDS ORDERED: RISPERIDONE 1 MG TAB.RAPDIS PO ONE (02:00)
--- NOTE | 2018-01-30 02:08 | ER Document Report ---
ED General - General Chief Complaint: Psych Problem Stated Complaint: RAN OUT OF MEDS/POSSIBLE ANXIETY Time Seen by Provider: 01/30/18 01:22 Notes: Patient is 27-year-old female presents with her significant other with concerns of having run out of all of her psychiatric medications. Majority of the history is as provided by her significant other is initially patient is very hesitant to talk to me. He reports that she last took her medicines 3 days ago and that he has noticed a "rapid deterioration" in her mood, demeanor, and increasing paranoia. He reports this is a very similar to when she is come off her medications abruptly in the past. She has been off her medications due to running out of them as she had a 30 day supply upon being [facility] but has not been able to get a refill since that time. She has not expressed any thoughts of wanting to harm herself or others. She and the patient's significant other deny any aggressive or violent behaviors. She denies any acute medical complaints. History is otherwise limited secondary to the patient 's limited willingness to speak to me. TRAVEL OUTSIDE OF THE [place] IN LAST 30 DAYS: No - Related Data Allergies/Adverse Reactions: No Known Allergies Allergy (Verified 08/22/17 07:18) Past Medical History - General Information source: Patient, Relative Cannot obtain history due to: Uncooperative - Social History Smoking Status: Current Every Day Smoker Frequency of alcohol use: None Drug Abuse: Cocaine, Marijuana Lives with: Spouse/Significant other Family History: Reviewed & Not Pertinent Patient has suicidal ideation: No Patient has homicidal ideation: No - Past Medical History Cardiac Medical History: Denies: Hx Hypertension Renal/ Medical History: Denies: Hx Peritoneal Dialysis Psychiatric Medical History: Reports: Hx Anxiety, Hx Bipolar Disorder, Hx Depression Past Surgical History: Reports: Hx Section - Immunizations Hx Diphtheria, Pertussis, Tetanus Vaccination: Yes Review of Systems - Review of Systems Notes: Constitutional: Negative for fever. HENT: Negative for sore throat. Eyes: Negative for visual changes. Cardiovascular: Negative for chest pain. Respiratory: Negative for shortness of breath. Gastrointestinal: Negative for abdominal pain, vomiting or diarrhea. Genitourinary: Negative for dysuria. Musculoskeletal: Negative for back pain. Skin: Negative for rash. Neurological: Negative for headaches, weakness or numbness. 10 point ROS negative except as marked above and in HPI. Physical Exam - Vital signs Vitals: Temp Pulse Resp BP Pulse Ox 98 F 106 H 18 141/96 H 99 01/30/18 00:28 01/30/18 00:28 01/30/18 00:28 01/30/18 00:28 01/30/18 00:28 Interpretation: Tachycardic Notes: PHYSICAL EXAMINATION: GENERAL: Well-appearing, well-nourished and in no acute distress. HEAD: Atraumatic, normocephalic. EYES: Pupils equal round and reactive to light, extraocular movements intact, sclera anicteric, conjunctiva are normal. ENT: nares patent, oropharynx clear without exudates. Moist mucous membranes. NECK: Normal range of motion, supple without lymphadenopathy LUNGS: Breath sounds clear to auscultation bilaterally and equal. No wheezes rales or rhonchi. HEART: Regular rate and rhythm without murmurs ABDOMEN: Soft, nontender, normoactive bowel sounds. No guarding, no rebound. No masses appreciated. EXTREMITIES: Normal range of motion, no pitting or edema. No cyanosis. NEUROLOGICAL: No focal neurological deficits. Moves all extremities spontaneously and on command. PSYCH: Limited verbal content. Poor eye contact. Pleasant and polite when she does speak. Does not appear to be responding to internal stimuli. Mildly restless. SKIN: Warm, Dry, normal turgor, no rashes or lesions noted. Course - Re-evaluation Re-evalutation: 01/30/18 02:08 Patient presents with deterioration of her baseline psychiatric illness including depression and mood disorder after coming off of all of her medications over the past 3 days doing to running out of medications. She does deny any active suicidal homicidal ideation. Denies any active safety concerns. She has contracted for safety. Her fianc at the bedside will be staying with her tonight. I have provided her with all of her medications here in the emergency department and have provided refills so that she does not run out. She has also been provided information for the community [facility]. She denies any acute medical complaints, no indication for medical screening labs. She will be discharged with return precautions and follow-up recommendations and community resource information. - Vital Signs Vital signs: Temp Pulse Resp BP Pulse Ox 98 F 106 H 18 141/96 H 99 01/30/18 00:28 01/30/18 00:28 01/30/18 00:28 01/30/18 00:28 01/30/18 00:28 Discharge - Discharge Clinical Impression: Medication refill Depression Qualifiers: Depression Type: unspecified Qualified Code(s): F32.9 - Major depressive disorder, single episode, unspecified Condition: Stable Disposition: HOME, SELF-CARE Additional Instructions: I have provided you with a prescription for all of your medications. Please continue take as directed. Please return if you have thoughts of wanting to hurt yourself, hurt others, or have any other symptoms that are concerning to you. Prescriptions: Hydroxyzine Pamoate [Vistaril 50 mg Capsule] 50 mg PO QHS #30 capsule Benztropine Mesylate 1 mg PO BID #60 tablet Carbamazepine [Tegretol 200 Mg Tablet] 200 mg PO BID #60 tablet Risperidone [Risperdal] 3 mg PO DAILY #30 tablet Sertraline HCl [Zoloft 50 mg Tablet] 50 mg PO DAILY #30 tablet
== END 2018-01-30 02:24 | disposition home or self-care (01) ==
LOC: ER 00:19
DX: F32.9 Major depressive disorder, single episode, unspecified (principal); F17.200 Nicotine dependence, unspecified, uncomplicated
CPT/HCPCS: 99283; J3490

== ENCOUNTER 2018-08-29 11:35 | Emergency (ER) | payer SELFPAY ==
[2018-08-29] MEDS ORDERED: NAPROXEN 250 MG TABLET PO ONE (12:46)
[2018-08-29] MEDS ORDERED: HYDROCODONE/ACETAMINOPHEN 5-325 MG TABLET PO ONE (12:46)
--- NOTE | 2018-08-29 12:46 | ER Document Report ---
ED General - General Chief Complaint: Facial Swelling Stated Complaint: JAW PAIN Time Seen by Provider: 08/29/18 12:39 Notes: Patient is a 28-year-old female that presents to the emergency department for chief complaint of facial swelling and tooth pain. Patient states she has had dental infections in the past and this seems similar. She noticed swelling on the right lower jaw 2 days ago, and it got worse over the last 2 days so she decided come to the emergency department. She has pain with eating, and pain on the side of her mouth on the right side. She states she does have a fractured tooth on that side as well. She has not been able to see the dentist to have this evaluated. Past Medical History: Denies chronic medical conditions Past Surgical History: Social History: Admits to smoking cigarettes daily, and occasional alcohol use, denies illicit drug use Family History: Reviewed and noncontributory for presenting illness Allergies: Reviewed, see documented allergy list. REVIEW OF SYSTEMS: Unless otherwise stated in this report the patient's positive and negative responses for review of systems for constitutional, eyes, ENT, cardiovascular, respiratory, gastrointestinal, neurological, genitourinary, musculoskeletal, and integumentary systems and related systems to the presenting problem are either as stated in the HPI or were not pertinent or were negative for the symptoms and/or complaints related to the presenting medical problem. PHYSICAL EXAMINATION: Vital signs reviewed, nursing noted reviewed. GENERAL: Well-appearing, well-nourished and in no acute distress. HEAD: Atraumatic, normocephalic. EYES: Eyes appear normal, extraocular movements intact, sclera anicteric, conjunctiva are normal. ENT: nares patent, oropharynx clear without exudates. Moist mucous membranes. There is a fractured tooth #29, with exposed root, no present abscess, there is mild erythema, there is a remnant of the tooth #32, but also looks mildly inflamed, but nontender to palpate patient does have Right lower lateral facial swelling, that is tender to palpate, without lymphadenopathy or erythema, no tenderness in the submental region, or evidence of Stuart's angina NECK: Normal range of motion, supple without lymphadenopathy LUNGS: Breath sounds clear to auscultation bilaterally and equal. No wheezes rales or rhonchi. HEART: Regular rate and rhythm without murmurs ABDOMEN: Soft, nontender, normoactive bowel sounds. No rebound, guarding, or rigidity. No masses appreciated. EXTREMITIES: Nontender, good range of motion, no pitting or edema. NEUROLOGICAL: No focal neurological deficits. Moves all extremities spontaneously Motor and sensory grossly intact on exam. PSYCH: Normal mood, normal affect. SKIN: Warm, Dry, normal turgor, no rashes or lesions noted on exposed skin TRAVEL OUTSIDE OF THE [place] IN LAST 30 DAYS: No - Related Data Allergies/Adverse Reactions: No Known Allergies Allergy (Verified 08/29/18 11:46) Past Medical History - Social History Smoking Status: Current Every Day Smoker Family History: Reviewed & Not Pertinent Patient has suicidal ideation: No Patient has homicidal ideation: No - Past Medical History Cardiac Medical History: Denies: Hx Hypertension Renal/ Medical History: Denies: Hx Peritoneal Dialysis Psychiatric Medical History: Reports: Hx Anxiety, Hx Bipolar Disorder, Hx Depression Past Surgical History: Reports: Hx Section - Immunizations Hx Diphtheria, Pertussis, Tetanus Vaccination: Yes Physical Exam - Vital signs Vitals: Temp Pulse Resp BP Pulse Ox 98.6 F 68 16 115/77 99 08/29/18 11:49 08/29/18 11:49 08/29/18 11:49 08/29/18 11:49 08/29/18 11:49 Course - Re-evaluation Re-evalutation: Patient seen and examined vital signs reviewed. Patient was evaluated and treated as appropriate for the patient's presenting symptoms and complaint, with consideration of any critical or life threatening conditions that may be associated with their obtained history and exam as noted above. Patient was treated with [place] 5 mg / 325 mg x1 dose, and naproxen 500 mg The patient was re-evaluated and was stable Evaluation was most consistent with dental infection and facial swelling, will have the patient follow-up with a dentist, will place her on antibiotics, for 7 days and provide prescription for naproxen. Plan of care was discussed with the patient at this point, after careful consideration I feel that that patient can be discharged from the emergency department, the patient was educated treatments and reasons to return to the emergency department based on their presumed diagnosis as noted above, they were advised to followup with a primary care physician in 2-3 days. Patient was agreeable to plan of care. *Note is created using voice recognition software and may contain spelling, syntax or grammatical errors. - Vital Signs Vital signs: Temp Pulse Resp BP Pulse Ox 98.4 F 72 18 118/76 99 08/29/18 12:55 08/29/18 12:55 08/29/18 12:55 08/29/18 12:55 08/29/18 12:55 Discharge - Discharge Clinical Impression: Dental infection Condition: Stable Disposition: HOME, SELF-CARE Instructions: Dental Infection or Abscess ([facility]) Additional Instructions: Please return to the emergency department if you have any worsening, or concern of your symptoms. Please return to the emergency department if you develop chest pain, difficulty breathing, severe abdominal pain, or ongoing vomiting. Please follow-up with your primary care physician in 2-3 days and any other recommended physicians. If prescribed, take all medications as directed. If you have any questions or concerns do not hesitate to return the emergency department for evaluation. Prescriptions: Naproxen 500 mg PO BID #30 tablet Penicillin V Potassium [Penicillin Vk 500 mg Tablet] 500 mg PO QID #28 tablet Referrals: JULIANNA CROCKER DDS [ACTIVE STAFF] - Follow up tomorrow [facility] [Provider Group] - Follow up tomorrow
[2018-08-29 12:56] VITALS: BP 118/76
== END 2018-08-29 12:55 | disposition home or self-care (01) ==
LOC: ER 11:35
DX: K04.7 Periapical abscess without sinus (principal); R22.0 Localized swelling, mass and lump, head; R68.84 Jaw pain; K08.89 Other specified disorders of teeth and supporting structures; F17.210 Nicotine dependence, cigarettes, uncomplicated
CPT/HCPCS: 99282

== ENCOUNTER 2018-11-03 12:10 | Emergency (ER) | payer SELFPAY ==
--- NOTE | 2018-11-03 12:40 | ER Document Report ---
Addendum entered and electronically signed by АЛЕКСАНДР ROCHA LCSWA 11/04/18 12:07: Discharge - Discharge Clinical Impression: Acute psychosis, PTSD (post-traumatic stress disorder), Severe manic bipolar 1 disorder with psychotic behavior Condition: Stable Disposition: HOME, SELF-CARE Additional Instructions: You have been evaluated both medical and behavioral health teams and been deemed appropriate for discharge. You are recommended to follow-up with outpatient mental health therapy with an emphasis for trauma. You are recommended to follow-up with [facility] in [place] located [facility] [address] as a walk-in Thursday through Thursday from 830 to 4 PM. You have also been provided a local resource list of area providers which includes mobile crisis contact information. You are highly encouraged to take medications as directed. Post-Traumatic Stress Disorder You seem to have post-traumatic stress disorder (PTSD). PTSD can cause chronic anxiety, sleeping problems, social withdrawal, and drug abuse. It can occur following a traumatic personal experience such as an accident, rape, assault, or of a loved one, or after experiencing a war or natural disaster. Symptoms may be delayed for days or even years. Emotional numbing, the inability to express grief, is usually the earliest sign. There may be apathy or agitation, aggression, and inability to perform ordinary tasks. Often there are frightening nightmares and sudden, intruding memories of the trauma. Panic attacks and feelings of guilt are common. Alcohol and drug use make post- traumatic stress symptoms worse. Medication may be temporarily necessary to combat anxiety, panic attacks, and depression. Medicine should not be considered a "cure." You must deal with the trauma and prepare to go on. Group therapy is often helpful. This helps you "talk through" the problem with others who share your symptoms. We can provide you with an appropriate referral. Bipolar Disorder Bipolar disorder is also called manic-depressive disorder. Depression alternates with brain hyperactivity called fermín. Each phase lasts from several days to a few weeks. We don't know exactly what causes bipolar disorder, but it's treatable. During the "manic phase," you may feel elated and energetic. You may have racing thoughts, rapid speech, increased activity, and grandiose ideas. During this time, you may not realize how poor your judgement is. Inappropriate spending, drug abuse, excessive alcohol use, marriage problems, and irresponsible sexual behavior are common during the manic phase. During the "depressive phase," you might feel depressed, guilty, worthless, fatigued, and unable to concentrate. You might have thoughts of suicide. Good treatments are available for bipolar disorder. [place] is a classic drug for bipolar disorder, and is still often useful. If the manic phase is very mild, an antidepressant alone can be prescribed. If the manic phase is very severe, an antipsychotic medicine (such as Haldol) may be needed. The treatment must be matched to your symptoms, so it's important to work closely with your psychiatric care provider. Contact your physician, the hospital emergency center, crisis line, or your counsellor if you are losing control or having self-destructive thoughts. AT ANY TIME, IF YOUR SYMPTOMS CHANGE SIGNIFICANTLY OR WORSEN OR YOU DEVELOP NEW SYMPTOMS, RETURN TO THE EMERGENCY DEPARTMENT IMMEDIATELY FOR RE-EVALUATION. Referrals: [facility] [Outside] - Follow up as needed Addendum entered and electronically signed by MOISE RIZVI DO 11/03/18 15:18: Course - Vital Signs Vital signs: Temp Pulse Resp BP Pulse Ox 98.7 F 102 H 16 98 11/03/18 12:30 11/03/18 12:30 11/03/18 12:30 11/03/18 12:30 - Laboratory Result Diagrams: 11/03/18 13:55 11/03/18 13:55 Laboratory results interpreted by me: 11/03/18 13:55 Glucose 120 H Direct Bilirubin 0.5 H Salicylates < 1.0 L Acetaminophen < 10 L - EKG Interpretation by Me Additional EKG results interpreted by me: EKG demonstrates sinus rhythm with a ventricular rate of 87 bpm, left axis deviation, normal intervals, no evidence of acute ischemia on this EKG, this is compared with prior EKG from 11/26/2017, without significant change. Original Note: ED General - General Chief Complaint: Psych Problem Stated Complaint: MED REFILL Time Seen by Provider: 11/03/18 12:37 Notes: Patient is a 28-year-old female with history of depression and bipolar disorder that presents to the emergency department for chief complaint of agitation, outbursts. History mainly provided by the patient's friend who is at bedside, as the patient does not want to answer questions at this time, he states that she has been out of her medication for several months was doing okay, but most recently over the weekend on Thursday she was having hallucinations, talking to people that were not there, making nonsensical statements, she is also been more agitated and aggressive, and combative. She also seems more withdrawn, then when she was on medication. They did not refill her medication, and she is not sure and will not say why she does not have her medication. Past Medical History: Bipolar disorder, depression Past Surgical History: Reviewed and, not pertinent Social History: Admits to smoking cigarettes, denies alcohol use, admits to marijuana use. Family History: Reviewed and noncontributory for presenting illness Allergies: Reviewed, see documented allergy list. REVIEW OF SYSTEMS: Other than noted above, the 12 point review of systems was reviewed with the patient and were negative, all pertinent findings are included in the HPI. PHYSICAL EXAMINATION: Vital signs reviewed, nursing noted reviewed. GENERAL: Patient appears agitated, and not answering questions appropriately HEAD: Atraumatic, normocephalic. EYES: Eyes appear normal, extraocular movements intact, sclera anicteric, conjunctiva are normal. ENT: nares patent, oropharynx clear without exudates. Moist mucous membranes. NECK: Normal range of motion, supple without lymphadenopathy LUNGS: Breath sounds clear to auscultation bilaterally and equal. No wheezes rales or rhonchi. HEART: Regular rate and rhythm without murmurs ABDOMEN: Soft, nontender, normoactive bowel sounds. No rebound, guarding, or rigidity. No masses appreciated. EXTREMITIES: Nontender, good range of motion, no pitting or edema. NEUROLOGICAL: No focal neurological deficits. Moves all extremities spontaneously Motor and sensory grossly intact on exam. PSYCH: Flat affect, tangential thinking, argumentative SKIN: Warm, Dry, normal turgor, no rashes or lesions noted on exposed skin TRAVEL OUTSIDE OF THE [place] IN LAST 30 DAYS: No - Related Data Allergies/Adverse Reactions: No Known Allergies Allergy (Verified 11/03/18 12:13) Past Medical History - Social History Family History: Reviewed & Not Pertinent - Past Medical History Cardiac Medical History: Denies: Hx Hypertension Renal/ Medical History: Denies: Hx Peritoneal Dialysis Psychiatric Medical History: Reports: Hx Anxiety, Hx Bipolar Disorder, Hx Depression Past Surgical History: Reports: Hx Section - Immunizations Hx Diphtheria, Pertussis, Tetanus Vaccination: Yes Physical Exam - Vital signs Vitals: Temp Pulse Resp Pulse Ox 98.7 F 102 H 16 98 11/03/18 12:30 11/03/18 12:30 11/03/18 12:30 11/03/18 12:30 Course - Re-evaluation Re-evalutation: Patient seen and examined, vital signs reviewed. Patient was withdrawn, and argumentative at times, decided to dose the patient with IM Geodon 20 mg, and IM Ativan 2 mg. Medical screening testing was ordered including bloodwork, EKG, and toxicology. Results of testing were reviewed. Testing demonstrated unremarkable blood work, negative hCG. Patient has been stable from a hemodynamic standpoint. At this point I feel that the patient is medically cleared and can be further evaluated from a psychiatric standpoint for final disposition from the emergency department. IVC put in place given that the patient appear to be acutely psychotic, and will need mental health evaluation, and adjustment of medi cations, she is calm, and restful after receiving Geodon and Ativan. Laboratory 11/03/18 11/03/18 11/03/18 13:46 13:46 13:55 WBC 7.5 RBC 4.44 Hgb 14.0 Hct 40.5 MCV 91 MCH 31.5 MCHC 34.6 RDW 13.1 Plt Count 285 Seg Neutrophils % 74.6 Lymphocytes % 18.0 Monocytes % 6.2 Eosinophils % 0.6 Basophils % 0.6 Absolute Neutrophils 5.6 Absolute Lymphocytes 1.4 Absolute Monocytes 0.5 Absolute Eosinophils 0.0 Absolute Basophils 0.0 Sodium Potassium Chloride Carbon Dioxide Anion Gap BUN Creatinine Est GFR ( Amer) Est GFR (Non-Af Amer) Glucose Calcium Total Bilirubin Direct Bilirubin Neonat Total Bilirubin Neonat Direct Bilirubin Neonat Indirect Bili AST ALT Alkaline Phosphatase Total Protein Albumin Serum HCG, Qual Urine Color STRAW Urine Appearance CLEAR Urine pH 6.0 Ur Specific [place] 1.002 Urine Protein NEGATIVE Urine Glucose (UA) NEGATIVE Urine Ketones NEGATIVE Urine Blood NEGATIVE Urine Nitrite NEGATIVE Urine Bilirubin NEGATIVE Urine Urobilinogen NEGATIVE Ur Leukocyte Esterase NEGATIVE Urine WBC (Auto) 0 Urine RBC (Auto) 0 Urine Bacteria (Auto) TRACE Squamous Epi Cells Auto 1 Urine Mucus (Auto) RARE Urine Ascorbic Acid NEGATIVE Salicylates Urine Opiates Screen NEGATIVE Urine Methadone Screen NEGATIVE Acetaminophen Ur Barbiturates Screen NEGATIVE Ur Phencyclidine Scrn NEGATIVE Ur Amphetamines Screen NEGATIVE U Benzodiazepines Scrn UNCONFIRMED POSITIVE Urine Cocaine Screen NEGATIVE U Marijuana (THC) Screen UNCONFIRMED POSITIVE Serum Alcohol 11/03/18 11/03/18 13:55 13:55 WBC RBC Hgb Hct MCV MCH MCHC RDW Plt Count Seg Neutrophils % Lymphocytes % Monocytes % Eosinophils % Basophils % Absolute Neutrophils Absolute Lymphocytes Absolute Monocytes Absolute Eosinophils Absolute Basophils Sodium 140.5 Potassium 3.8 Chloride 107 Carbon Dioxide 22 Anion Gap 12 BUN 10 Creatinine 0.90 Est GFR ( Amer) > 60 Est GFR (Non-Af Amer) > 60 Glucose 120 H Calcium 9.4 Total Bilirubin 1.2 Direct Bilirubin 0.5 H Neonat Total Bilirubin Not Reportable Neonat Direct Bilirubin Not Reportable Neonat Indirect Bili Not Reportable AST 24 ALT 15 Alkaline Phosphatase 69 Total Protein 7.3 Albumin 4.7 Serum HCG, Qual NEGATIVE Urine Color Urine Appearance Urine pH Ur Specific [place] Urine Protein Urine Glucose (UA) Urine Ketones Urine Blood Urine Nitrite Urine Bilirubin Urine Urobilinogen Ur Leukocyte Esterase Urine WBC (Auto) Urine RBC (Auto) Urine Bacteria (Auto) Squamous Epi Cells Auto Urine Mucus (Auto) Urine Ascorbic Acid Salicylates < 1.0 L Urine Opiates Screen Urine Methadone Screen Acetaminophen < 10 L Ur Barbiturates Screen Ur Phencyclidine Scrn Ur Amphetamines Screen U Benzodiazepines Scrn Urine Cocaine Screen U Marijuana (THC) Screen Serum Alcohol < 10 - Vital Signs Vital signs: Temp Pulse Resp BP Pulse Ox 98.7 F 102 H 16 98 11/03/18 12:30 11/03/18 12:30 11/03/18 12:30 11/03/18 12:30 - Laboratory Result Diagrams: 11/03/18 13:55 11/03/18 13:55 Laboratory results interpreted by me: 11/03/18 13:55 Glucose 120 H Direct Bilirubin 0.5 H Salicylates < 1.0 L Acetaminophen < 10 L Discharge - Discharge Clinical Impression: Acute psychosis Condition: Stable
[2018-11-03] MEDS ORDERED: LORAZEPAM INJ 2 MG/1 ML VIAL IM ONE (12:51)
[2018-11-03] MEDS ORDERED: ZIPRASIDONE MESYLATE INJ/PF 20 MG SDV IM ONE (12:51)
[2018-11-03 14:05] LABS: ABSOLUTE LYMPHOCYTES (AUTO) 1.4 10^3/uL (0.5-4.7); ABSOLUTE MONOCYTES (AUTO) 0.5 10^3/uL (0.1-1.4); ABSOLUTE NEUT (AUTO) 5.6 10^3/uL (1.7-8.2); BASOPHILS % (AUTO) 0.6 % (0-2); EOSINOPHILS % (AUTO) 0.6 % (0-6); HEMATOCRIT 40.5 % (36.0-47.0); MEAN CORPUSCULAR HEMOGLOBIN 31.5 pg (27.0-33.4); MEAN CORPUSCULAR HGB CONC 34.6 g/dL (32.0-36.0); MEAN CORPUSCULAR VOLUME 91 fl (80-97); MONOCYTES % (AUTO) 6.2 % (3-13); PLATELET COUNT 285 10^3/uL (150-450); RED BLOOD COUNT 4.44 10^6/uL (3.72-5.28); RED CELL DISTRIBUTION WIDTH 13.1 % (11.5-14.0); SEGMENTED NEUTROPHILS % (AUTO) 74.6 % (42-78); TOTAL CELLS COUNTED % (AUTO) 100 %; WHITE BLOOD COUNT 7.5 10^3/uL (4.0-10.5)
[2018-11-03 14:18] LABS: APPEARANCE,URINE CLEAR; BILIRUBIN,URINE NEGATIVE (NEGATIVE); COLOR,URINE STRAW; GLUCOSE, URINE NEGATIVE (NEGATIVE); KETONES,URINE NEGATIVE (NEGATIVE); LEUKOCYTE ESTERASE,URINE NEGATIVE (NEGATIVE); NITRITE,URINE NEGATIVE (NEGATIVE); PROTEIN,URINE NEGATIVE (NEGATIVE); URINE SPECIFIC GRAVITY 1.002; UROBILINOGEN,URINE NEGATIVE mg/dL (<2.0)
[2018-11-03 14:23] LABS: ACETAMINOPHEN < 10 ug/mL (10-30); ALANINE AMINOTRANSFERASE 15 U/L (9-52); ALBUMIN 4.7 g/dL (3.5-5.0); ALCOHOL < 10 mg/dL (NONE DETECTED); ALKALINE PHOSPHATASE 69 U/L (38-126); ANION GAP 12 (5-19); ASPARTATE AMINO TRANSFERASE 24 U/L (14-36); BILIRUBIN,DIRECT 0.5 mg/dL (0.0-0.4); BILIRUBIN,TOTAL 1.2 mg/dL (0.2-1.3); BLOOD UREA NITROGEN 10 mg/dL (7-20); CALCIUM 9.4 mg/dL (8.4-10.2); CARBON DIOXIDE 22 mmol/L (22-30); CHLORIDE 107 mmol/L (98-107); GLUCOSE 120 mg/dL (75-110); POTASSIUM 3.8 mmol/L (3.6-5.0); SALICYLATE < 1.0 mg/dL (2.0-20.0); SODIUM 140.5 mmol/L (137-145); TOTAL PROTEIN 7.3 g/dL (6.3-8.2)
[2018-11-03 14:32] LABS: URINE AMPHETAMINES SCREEN NEGATIVE; URINE BARBITURATES SCREEN NEGATIVE; URINE BENZODIAZEPINES SCREEN UNCONFIRMED POSITIVE; URINE COCAINE SCREEN NEGATIVE; URINE MARIJUANA (THC) SCREEN UNCONFIRMED POSITIVE; URINE METHADONE SCREEN NEGATIVE; URINE PHENCYCLIDINE SCREEN NEGATIVE
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
[2018-11-03] MEDS ORDERED: ZIPRASIDONE MESYLATE INJ/PF 20 MG SDV IM PRN (17:57)
--- NOTE | 2018-11-03 18:41 | EKG REPORT ---
SEVERITY:- OTHERWISE NORMAL ECG - SINUS RHYTHM LEFT AXIS DEVIATION : Confirmed by: Ruben Ramos MD 03-Nov-2018 18:40:42
[2018-11-03] MEDS ORDERED: NICOTINE 21 MG/24 HR PATCH.TD24 TD ONE (18:47)
[2018-11-03] MEDS ORDERED: BENZTROPINE MESYLATE 1 MG TABLET PO SCH (19:00)
[2018-11-03] MEDS ORDERED: BENZTROPINE MESYLATE 1 MG TABLET PO ONE (19:46)
[2018-11-03] MEDS: OLANZAPINE 5 MG TABLET PO SCH (19:56)
[2018-11-03] MEDS ORDERED: LORAZEPAM INJ 2 MG/1 ML VIAL IM PRN (20:57)
[2018-11-04 07:38] VITALS: BP 110/80
[2018-11-04] MEDS: OLANZAPINE 5 MG TABLET PO SCH (09:12)
[2018-11-04] MEDS ORDERED: NICOTINE 21 MG/24 HR PATCH.TD24 TD ONE (09:15)
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
[2018-11-04] MEDS ORDERED: BENZTROPINE MESYLATE 1 MG TABLET PO SCH (10:00)
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
== END 2018-11-04 12:35 | disposition home or self-care (01) ==
LOC: ER 12:10
DX: F31.2 Bipolar disorder, current episode manic severe with psychotic features (principal); F43.10 Post-traumatic stress disorder, unspecified; F17.210 Nicotine dependence, cigarettes, uncomplicated; Z62.810 Personal history of physical and sexual abuse in childhood
CPT/HCPCS: 93005; 99285; 96372; 36415; 80307 ×4; 84703; 85025; 80053; 81001; 93010; J2060; J3486

== ENCOUNTER 2018-11-28 05:48 | Emergency (ER) | payer SELFPAY ==
[2018-11-28 06:11] VITALS: BP 133/81
== END 2018-11-28 06:50 | disposition left against medical advice (07) ==
LOC: EEVIPCON 05:48 → ER 05:48
DX: Z53.21 Procedure and treatment not carried out due to patient leaving prior to being seen by health care provider (principal)

== ENCOUNTER 2019-03-24 17:20 | Emergency (ER) | payer SELFPAY ==
[2019-03-24 17:34] VITALS: BP 120/85
[2019-03-24] MEDS ORDERED: KETOROLAC TROMETHAMINE 60 MG/2 ML SDV IM ONE (18:29)
--- NOTE | 2019-03-24 18:33 | ER Document Report ---
HPI - HPI Patient complains to provider of: Medication refill Time Seen by Provider: 03/24/19 18:21 Onset: Other Quality of pain: No pain Context: Patient presents to the emergency department with multiple request. Patient first request that all her mental health medications be refilled. She reports she just got out of correction. They have giving her several days worth of prescriptions but she will be running out in a few days. She reported that she is planning on following up with behavioral health tomorrow. She also request for a Depo shot. Patient reports that she received a pelvic exam on her [birth year] they are treating her for Flagyl but now she wants to be treated with control because she has 6 kids and 2 miscarriages and she does not want to go through it again. Has no complaints such as fever vomiting diarrhea denies any kind of aches or pains. Patient reports she thought she is had family care planning here in the emergency department before. Patient is answering all questions appropriately no complaints of suicidal or homicidal ideations Associated Symptoms: None Exacerbated by: Denies Relieved by: Denies Similar symptoms previously: No Recently seen / treated by doctor: No - REPRODUCTIVE Reproductive: DENIES: : Past Medical History - General Information source: Patient Last Menstrual Period: FEBRUARY - Social History Smoking Status: Unknown if Ever Smoked Cigarette use (# per day): No Frequency of alcohol use: None Drug Abuse: None Lives with: Family Family History: Reviewed & Not Pertinent Patient has suicidal ideation: No Patient has homicidal ideation: No - Medical History Medical History: Negative - Past Medical History Cardiac Medical History: Denies: Hx Hypertension Renal/ Medical History: Denies: Hx Peritoneal Dialysis Psychiatric Medical History: Reports: Hx Anxiety, Hx Bipolar Disorder, Hx Depression Past Surgical History: Reports: Hx Section - Immunizations Hx Diphtheria, Pertussis, Tetanus Vaccination: Yes Vertical Provider Document - CONSTITUTIONAL Agree With Documented VS: Yes Exam Limitations: No Limitations General Appearance: WD/WN, No Apparent Distress - INFECTION CONTROL TRAVEL OUTSIDE OF THE [place] IN LAST 30 DAYS: No - HEENT HEENT: Atraumatic, Normocephalic - NECK Neck: Supple - RESPIRATORY Respiratory: No Respiratory Distress - MUSCULOSKELETAL/EXTREMETIES Musculoskeletal/Extremeties: MASTEPHEN RODRIGUES - NEURO Level of Consciousness: Awake, Alert, Appropriate Motor/Sensory: No Motor Deficit - DERM Integumentary: Warm, Dry Course - Re-evaluation Re-evalutation: 03/24/19 19:09 She was given written information on mental health resources. She was also instructed on the importance of follow-up with the health department. Patient reports she lives in [place] and she is very familiar with health department. Patient plans on following up with behavioral health tomorrow. Dictation of this chart was performed using voice recognition software; therefore, there may be some unintended grammatical errors. - Vital Signs Vital signs: Temp Pulse Resp BP Pulse Ox 98.6 F 102 H 18 120/85 97 03/24/19 17:33 03/24/19 17:33 03/24/19 17:33 03/24/19 17:33 03/24/19 17:33 Discharge - Discharge Clinical Impression: Medication refill Condition: Stable Disposition: HOME, SELF-CARE Additional Instructions: You have been evaluated for medication refill and control. Follow-up with the health department. Follow-up with mental health. Return to the emergency department if you are unable to fill your medications.
== END 2019-03-24 19:00 | disposition home or self-care (01) ==
LOC: ER 17:20
DX: Z76.0 Encounter for issue of repeat prescription (principal)
CPT/HCPCS: 99281

== ENCOUNTER 2019-07-06 04:15 | Emergency (ER) | payer SELFPAY | END 2019-07-06 06:21 | disposition left against medical advice (07) | LOC: ER 04:15 | DX: Z53.21 Procedure and treatment not carried out due to patient leaving prior to being seen by health care provider (principal) ==

== ENCOUNTER 2019-07-17 10:00 | Emergency (ER) | payer SELFPAY ==
--- NOTE | 2019-07-17 10:37 | ER Document Report ---
ED Medical Screen (RME) - General Chief Complaint: Vaginal Pain Stated Complaint: VAGINAL ISSUE Time Seen by Provider: 07/17/19 10:26 Notes: Patient is a 29-year-old female presents to the emergency department with the chief complaint of "I want a physical exam." Patient states she is supposed to follow-up with [facility] on July 31 to have her yearly physical. Patient states she would like to be checked out prior to that. Patient states she is having some urinary frequency and urgency. Patient states she is having some vaginal pain without vaginal discharge. Patient reports "I do have some concerns."Patient states she is not currently sexually active and is not on any control condoms. Patient is unsure of her last menstrual cycle. Patient denies abdominal pain, nausea, vomiting or diarrhea. Patient reports being under a lot of stress recently. TRAVEL OUTSIDE OF THE [place] IN LAST 30 DAYS: No - Related Data Allergies/Adverse Reactions: No Known Allergies Allergy (Verified 07/17/19 10:03) Past Medical History - Past Medical History Cardiac Medical History: Denies: Hx Hypertension Renal/ Medical History: Denies: Hx Peritoneal Dialysis Psychiatric Medical History: Reports: Hx Anxiety, Hx Bipolar Disorder, Hx Depression Past Surgical History: Reports: Hx Section - Immunizations Hx Diphtheria, Pertussis, Tetanus Vaccination: Yes Physical Exam - Vital signs Vitals: Temp Pulse Resp BP Pulse Ox 98.0 F 86 14 143/76 H 98 07/17/19 10:11 07/17/19 10:11 07/17/19 10:11 07/17/19 10:11 07/17/19 10:11 - Abdominal Inspection: Normal Distension: No distension Bowel sounds: Normal Tenderness: Nontender Organomegaly: No organomegaly Course - Re-evaluation Re-evalutation: 07/17/19 10:34 Upon examination patient has a flat affect. When asked about possibility for sexually transmitted diseases patient states "I do have my concerns." Patient is not getting into details while in triage. Patient requesting a full physical. I did inform the patient that we do perform pelvic examinations but these are not Pap smears that rule out cervical cancer and that she needs to keep her appointment with [facility]. Patient verbalized understanding and would like to continue with the pelvic exam today to include STD testing, urinalysis and rule out a possible bacterial infection. I have greeted and performed a rapid initial assessment of this patient. A comprehensive ED assessment and evaluation of the patient, analysis of test results and completion of the medical decision making process will be conducted by additional ED providers. - Vital Signs Vital signs: Temp Pulse Resp BP Pulse Ox 98.0 F 86 14 143/76 H 98 07/17/19 10:11 07/17/19 10:11 07/17/19 10:11 07/17/19 10:11 07/17/19 10:11
[2019-07-17 11:15] LABS: APPEARANCE,URINE SLIGHTLY-CLOUDY; BILIRUBIN,URINE NEGATIVE (NEGATIVE); COLOR,URINE STRAW; GLUCOSE, URINE NEGATIVE (NEGATIVE); KETONES,URINE NEGATIVE (NEGATIVE); LEUKOCYTE ESTERASE,URINE SMALL (NEGATIVE); NITRITE,URINE NEGATIVE (NEGATIVE); PROTEIN,URINE NEGATIVE (NEGATIVE); URINE SPECIFIC GRAVITY 1.005; UROBILINOGEN,URINE NEGATIVE mg/dL (<2.0)
--- NOTE | 2019-07-17 12:06 | ER Document Report ---
ED General - General Chief Complaint: Vaginal Pain Stated Complaint: VAGINAL ISSUE Time Seen by Provider: 07/17/19 10:26 Notes: Patient is a 29-year-old female who presents to the emergency department with a chief complaint of vaginal issues. She states that she has had some vaginal discharge and wants a physical exam. She is supposed to follow-up with [facility], but wants to be checked prior to that. She denies any d ysuria, hemturia. Patient states that she is not currently sexually active, but has been "entertaining a moses." She also states that her brother recently and she has been feeling down about that. She denies any suicidal or homicidal ideation at this time. According to the nursing staff, the patient is homeless. Patient did not elaborate much on her past medical history, but from what I gather from the chart, the patient has anxiety and depression. Asked patient if she would like to see mental health, but she states that she does not want to at this time. TRAVEL OUTSIDE OF THE [place] IN LAST 30 DAYS: No - Related Data Allergies/Adverse Reactions: No Known Allergies Allergy (Verified 07/17/19 10:03) Past Medical History - General Information source: Patient - Social History Smoking Status: Current Some Day Smoker Chew tobacco use (# tins/day): No Frequency of alcohol use: Occasional Drug Abuse: Marijuana Family History: Reviewed & Not Pertinent Patient has suicidal ideation: No Patient has homicidal ideation: No - Past Medical History Cardiac Medical History: Denies: Hx Hypertension Renal/ Medical History: Denies: Hx Peritoneal Dialysis Psychiatric Medical History: Reports: Hx Anxiety, Hx Bipolar Disorder, Hx Depression Past Surgical History: Reports: Hx Section - Immunizations Hx Diphtheria, Pertussis, Tetanus Vaccination: Yes Review of Systems - Review of Systems Notes: REVIEW OF SYSTEMS: CONSTITUTIONAL : Denies recent illness. Denies recent unintentional weight loss. Denies fever, chills, or sweats. EENT: Denies eye, ear, throat, or mouth pain, discharge, or symptoms. Denies nasal or sinus congestion. CARDIOVASCULAR: Denies chest pain. RESPIRATORY: Denies shortness of breath, cough, congestion, difficulty breathing, or wheezing. GASTROINTESTINAL: Denies nausea, vomiting, and diarrhea. Denies abdominal pain. Denies constipation. GENITOURINARY: Denies difficulty urinating, burning, blood in urine, urgency or frequency. FEMALE GENITOURINARY: See HPI MUSCULOSKELETAL: Denies neck and back pain. Denies joint pain or swelling. SKIN: Denies rash, itchiness, or lesions HEMATOLOGIC : Denies easy bruising or bleeding. LYMPHATIC: Denies swollen, painful, enlarged glands. NEUROLOGICAL: Denies no numbness or tingling denies weakness. Denies headache. Denies altered mental status. Denies alteration in speech. PSYCHIATRIC: Denies stress, anxiety, alteration in sleep patterns, or depression. All other systems reviewed and negative. Physical Exam - Vital signs Vitals: Temp Pulse Resp BP Pulse Ox 98.0 F 86 14 143/76 H 98 07/17/19 10:11 07/17/19 10:11 07/17/19 10:11 07/17/19 10:11 07/17/19 10:11 - Notes Notes: PHYSICAL EXAMINATION: GENERAL: Appears well, healthy, well-nourished, no acute distress. HEAD: Normocephalic, atraumatic. EYES: PERRL, conjunctiva normal, all extraocular movements intact, sclera nonicteric ENT: Moist mucous membranes. NECK: Supple, no noticeable swelling, redness, rash. Normal range of motion. LUNGS: Equal breath sounds bilaterally and clear to auscultation. No wheezes rales or rhonchi. CARDIOVASCULAR: S1-S2, regular rate, regular rhythm. Radial pulses 2+, normal. ABDOMEN: Normoactive bowel sounds. Soft, nontender, no guarding, no rebound tenderness, and no masses palpated. EXTREMITIES: Normal strength and range of motion, no pitting or edema. No cyanosis. NEUROLOGICAL: Moves all extremities upon command. Strength 5/5 in all extremities. PSYCH: Normal mood, normal affect. SKIN: Warm, dry. No rash, lesions, ulcerations noted. Normal skin turgor. DISCOVERY MANAGER: Small amount of yellow discharge noted. No cervical motion tenderness. No adnexal tenderness. Course - Re-evaluation Re-evalutation: 07/17/19 12:04 Pelvic exam was done with LESLEY Alvarez at bedside. There is a small amount of vaginal discharge noted. No cervical motion tenderness noted. No adnexal tenderness noted. Patient will be sent for transvaginal ultrasound to check for tubo-ovarian abscess, as she did have some vaginal discharge. Urine shows a small amount of leukocytes. Wet mount and gonorrhea and chlamydia were sent. 07/17/19 14:45 Patient has 3+ epithelial cells and 3+ bacteria noted. No trichomoniasis. She has 3+ WBCs. Her gonorrhea and Chlamydia are negative. Her wet mount is consistent with bacterial vaginosis. Transvaginal ultrasound shows probable loculated fluid in the endometrial cavity. Beta hCG will be sent. Patient also has a 2 cm benign cyst noted in the right ovary. 07/17/19 15:45 Patient's serum hCG is positive. Her beta hCG is 36.67. Due to the patient not knowing when her last menstrual cycle was, she is most likely at the very beginning of , which was visualized on her ultrasound. I talked to the patient about the finding. Patient was tearful because she has been mu ltiple times and has 6 children and none of them are in her custody. Patient will follow-up with [facility] in regards to this visit. Patient also be treated with transvaginal Flagyl for Bacterial vaginosis. Follow-up precautions were given. Verbal discharge instructions were given to the patient. They verbalized understanding. They are stable for discharge. - Vital Signs Vital signs: Temp Pulse Resp BP Pulse Ox 98.1 F 87 16 127/74 H 100 07/17/19 15:54 07/17/19 15:54 07/17/19 15:54 07/17/19 15:54 07/17/19 15:54 - Laboratory Laboratory results interpreted by me: 07/17/19 07/17/19 07/17/19 10:40 14:25 14:25 Serum HCG, Qual POSITIVE H Beta HCG, Quant 36.67 H Ur Leukocyte Esterase SMALL H Discharge - Discharge Clinical Impression: Bacterial vaginosis Qualifiers: Weeks of gestation: less than 8 weeks Qualified Code(s): Z3A.01 - Less than 8 weeks gestation of Condition: Stable Disposition: HOME, SELF-CARE Additional Instructions: You are seen today in the emergency department for vaginal discharge. You are being treated with Flagyl for bacterial vaginosis. This will be given transvaginally because you are currently . The is very early and your levels show an early . Please follow-up with [facility] in regards to this visit. Prescriptions: Metronidazole [Metrogel 0.75% Vaginal Gel] 5 applic VG QHS 5 Days #5 tube
[2019-07-17 12:18] LABS: BACTERIA (WET MOUNT) 3+ BACTERIA SEEN; EPITHELIALS (WET MOUNT) 3+ EPITHELIALS SEEN; RBCS (WET MOUNT) FEW RBCS SEEN; T.VAGINALIS (WET MOUNT) NO TRICHOMONAS SEEN; WBCS (WET MOUNT) 3+ WBCS SEEN; YEAST (WET MOUNT) NO YEAST SEEN
--- NOTE | 2019-07-17 13:36 | RADIOLOGY REPORT (SQ) ---
EXAM DESCRIPTION: U/S NON OB PEL TV W/DOPPLER COMPLETED DATE/TIME: 07/17/2019 1:23 pm REASON FOR STUDY: vaginal discharge COMPARISON: None. TECHNIQUE: Dynamic and static grayscale images acquired of the pelvis via transvaginal approach and recorded on PACS. Additional selected color Doppler and spectral images recorded. LIMITATIONS: None. FINDINGS: UTERUS: Contour normal. No mass. ENDOMETRIAL STRIPE: Small nonvascular 8 mm cystic-appearing region within the endometrial cavity. En dometrium measures 1.6 cm, otherwise normal in appearance without mass. Patient reportedly has negat rahat beta HCG. CERVIX: No nabothian cysts. RIGHT OVARY AND DOPPLER: Normal size. No worrisome masses. 2 cm cyst suggested without suspicious fe atures. Normal arterial vascular flow without evidence for torsion. LEFT OVARY AND DOPPLER: Not seen. FREE FLUID: Trace free fluid in the cul-de-sac. OTHER: No other significant finding. MEASUREMENTS: UTERUS: 9 x 4 x 6 cm ENDOMETRIAL STRIPE: 1.6 cm RIGHT OVARY: 4 x 2 x 3 cm LEFT OVARY: Not seen. IMPRESSION: 1. Minimal probable loculated fluid in the endometrial cavity. Patient has negative beta HCG and no suggestion of developing . Endometrium otherwise looks normal as does the uterus. 2. Incidental 2 cm dominant follicle or cyst in the right ovary without suspicious features. TECHNICAL DOCUMENTATION: JOB ID: [id number] [employer]- All Rights Reserved Rev-04/02 Reading location - IP/workstation name: [email or web address]
[2019-07-17 13:41] LABS: CHLAM PCR NOT DETECTED (NOT DETECT)
[2019-07-17 16:00] VITALS: BP 127/74
== END 2019-07-17 16:00 | disposition home or self-care (01) ==
LOC: EEVIPCON 10:00 → ER 10:00
DX: O23.591 Infection of other part of genital tract in pregnancy, first trimester (principal); B96.89 Other specified bacterial agents as the cause of diseases classified elsewhere; O34.81 Maternal care for other abnormalities of pelvic organs, first trimester; N83.201 Unspecified ovarian cyst, right side; O99.321 Drug use complicating pregnancy, first trimester; F12.10 Cannabis abuse, uncomplicated; O99.331 Smoking (tobacco) complicating pregnancy, first trimester; F17.200 Nicotine dependence, unspecified, uncomplicated; Z3A.01 Less than 8 weeks gestation of pregnancy; Z59.0 Homelessness
CPT/HCPCS: 36415; 76830; 81001; 81025; 84702; 84703; 87210; 87491; 87591; 93976; 99284